=== PATIENT | female | born 1945 | race Caucasian/White ===

== ENCOUNTER → 2018-01-19 09:23 | Outpatient (CLI) | payer MEDICARE, SELFPAY ==
[2018-01-19 11:25] LABS: Vitamin D 25 Hydroxy (D3) 19.8 ng/mL (30.0-100.0)
[2018-01-24 15:30] LABS: 1 25 Dihydroxy Vitamin D 61
== END ==
PROVIDERS: PCP Internal Medicine; Visit Provider Internal Medicine Pulmonary Disease
DX: D86.9 Sarcoidosis, unspecified (principal); E55.9 Vitamin D deficiency, unspecified; Z84.1 Family history of disorders of kidney and ureter
CPT/HCPCS: 36415; 82306; 82652

== ENCOUNTER → 2018-04-09 11:20 | Outpatient (CLI) | payer MEDICARE, SELFPAY ==
--- NOTE | 2018-04-09 | DI.MG.S_ITS ---
BILATERAL DIGITAL SCREENING MAMMOGRAM 3D/2D WITH CAD: 04/09/2018 CLINICAL: Routine screening. Family history of breast cancer. Comparison is made to exams dated: 03/30/2017 mammogram, 02/19/2016 mammogram, and 02/13/2015 mammogram - [facility]. There are scattered fibroglandular elements in both breasts. Current study was also evaluated with a Computer Aided Detection (CAD) system. No significant masses, calcifications, or other findings are seen in either breast. There has been no significant interval change. IMPRESSION: NEGATIVE There is no mammographic evidence of malignancy. A 1 year screening mammogram is recommended. This exam was interpreted at Station ID: [id number]. NOTE: For mammograms, a report in lay terms will be sent to the patient. Approximately 15% of breast malignancies will not be visualized mammographically. In the management of a palpable breast mass, a negative mammogram must not discourage biopsy of a clinically suspicious lesion. Electronically Signed By: Snehal linn/boris:04/11/2018 13:59:46 letter sent: Normal Exam ACR BI-RADS Category 1: Negative [id number]
[2018-04-09 12:28] LABS: Add Manual Diff / Slide Review NO; Basophils Percent Auto 0.7 % (0-2); Eosinophils Percent Auto 3.8 % (2-4); Hematocrit 44.1 % (36-46); Hemoglobin 15.2 g/dL (12.0-16.0); Lymphocytes Percent Auto 13.2 % (25-40); Mean Corpuscular HGB Conc 34.6 % (30-36); Mean Corpuscular Hemoglobin 29.2 PG (26-34); Mean Corpuscular Volume 84.5 fL (80-100); Monocytes Percent Auto 10.1 % (3-14); Neutrophils Absolute Auto 5100 /uL (3000-5900); Neutrophils Percent Auto 72.2 % (50-75); Platelet Count 385 X10^3/uL (150-400); Red Blood Cell Count 5.21 X10^6/uL (4.0-5.2); Red Cell Distribution Width 14.2 % (11.6-14.8); White Blood Cell Count 7.1 X10^3/uL (4.5-11.0)
[2018-04-09 12:38] LABS: Alanine Aminotransferase 32 IU/L (9-52); Albumin 4.3 g/dL (3.5-5.0); Albumin Globulin Ratio 1.3 (1.0-2.8); Alkaline Phosphatase 64 U/L (38-126); Aspartate Aminotransferase 25 IU/L (14-36); Bilirubin Total 0.6 mg/dL (0.2-1.3); Blood Urea Nitrogen 24 mg/dL (7-17); Calcium 9.3 mg/dL (8.4-10.2); Carbon Dioxide 31 mmol/L (22-32); Chloride 103 mmol/L (98-107); Estimated Glomerular Filt Rate > 60.0 mL/min (>60); Globulin 3.3 g/dL (1.7-4.1); Glucose 95 mg/dL (80-110); HEMOLYSIS < 15 (0-50); Sodium 143 mmol/L (137-145); Total Protein 7.6 g/dL (6.3-8.2)
== END ==
PROVIDERS: PCP Internal Medicine; Visit Provider Internal Medicine
DX: Z12.31 Encounter for screening mammogram for malignant neoplasm of breast (principal); I10 Essential (primary) hypertension
CPT/HCPCS: 36415; 77063; 77067; 80053; 85025

== ENCOUNTER → 2018-04-22 15:08 | Outpatient (CLI) | payer MEDICARE, SELFPAY ==
[2018-04-22 16:21] LABS: Cholesterol 209 mg/dL (140-199); HDL Cholesterol 55 mg/dL (40-60); LDL Cholesterol Calculated 131 mg/dL (<100); Triglycerides 114 mg/dL (35-150)
== END ==
PROVIDERS: PCP Internal Medicine; Visit Provider Internal Medicine
DX: M85.852 Other specified disorders of bone density and structure, left thigh (principal); Z78.0 Asymptomatic menopausal state; E78.2 Mixed hyperlipidemia; Z82.62 Family history of osteoporosis
CPT/HCPCS: 77080; 80061

== ENCOUNTER 2018-05-25 08:52 | Day surgery (SDC) | payer MEDICARE, SELFPAY ==
--- NOTE | 2018-05-25 | PATH_ITS ---
[facility] Accession Number: [id number] . 01 Material submitted: . PART A: ASCENDING COLON POLYP PART B: DESCENDING COLON POLYP PART C: SIGMOID POLYP . 02 Diagnosis: A. Biopsy, Ascending Colon Polyp: Tubular adenoma. . B. Biopsy, Descending Colon Polyp: Fragment of colon mucosa with focal superficial acute inflammation, nonspecific. Negative for evidence of neoplasm and/or hyperplasia on multiple sections. . C. Biopsy, Sigmoid Colon Polyp: Fragment of normal appearing colon mucosa. Negative for evidence of hyperplasia and/or neoplasm on multiple histologic sections. [facility]/05/26/2018 . 02 Electronically signed: . Jose Elias Posey MD, Pathologist NPI- [id number] . 01 Gross description: . Received three formalin-filled containers, each labeled with the patient's name: . A. In a container labeled ascending colon polyp, the specimen consists of a 0.2 cm portion of tissue, entirely submitted in cassette A. B. In a container labeled descending col. polyp, the specimen consists of a 0.3 cm portion of tissue, entirely submitted in cassette B. C. In a container labeled sigmoid polyp, the specimen consists of a 0.5 cm portion of tissue, entirely submitted in cassette C. ([id number]) /FRR . 02 Pathologist provided ICD-10: D12.2 . 02 CPT . 592939, 098747, 865724 Performed at: 01 [facility] [address] [id number] MD Morro Gunn MD Phone: [phone] Performed at: 02 [facility] [id number] [place] [id number] MD Giulia Morris MD Phone: [phone]
[2018-05-25 09:19] VITALS: BP 137/72; PULSE 94; RESP 16; TEMP 36.2; O2SAT 97
--- NOTE | 2018-05-25 10:03 | PM.HP.1 ---
History of Present Illness Date Patient Seen: 05/25/18 Time Patient Seen: 10:04 Chief complaint: [id number] Narrative: Screening Patient History Medical History Hypercholesterolemia (Acute) Hypertension (Acute) Family & Social History Social History: household members friend(s) Meds Home Medications Medication Instructions Recorded Confirmed Type ezetimibe [Zetia] 10 mg PO DAILY 05/25/18 05/25/18 History losartan 50 mg PO DAILY 05/25/18 05/25/18 History Allergies Allergy/AdvReac Type Severity Reaction Status Date / Time codeine AdvReac Verified 05/25/18 09:12 meperidine [From Demerol] AdvReac Verified 05/25/18 09:12 Exam Vital Signs (past 8 hours): - 05/25/18 09:19 Temperature 97.1 F L Pulse Rate 94 H Respiratory Rate 16 Blood Pressure 137/72 Pulse Oximetry 97 Oxygen Delivery Method Room Air Narrative Exam Narrative: Oropharynx free of lesions Chest clear to auscultation and percussion Cardiac exam reveals no S3 or murmur Assessment & Plan Plan: Assessment/Plan Narrative: Need for screening colonoscopy with last colonoscopy somewhere between 8-12 years ago. Risks, benefits, alternatives have been explained.
--- NOTE | 2018-05-25 10:06 | P.HP_ITS ---
History of Present Illness Date Patient Seen: 05/25/18 Time Patient Seen: 10:04 Chief complaint: [id number] Narrative: Screening Patient History Medical History Hypercholesterolemia (Acute) Hypertension (Acute) Family & Social History Social History: household members friend(s) Meds Home Medications Medication Instructions Recorded Confirmed Type ezetimibe [Zetia] 10 mg PO DAILY 05/25/18 05/25/18 History losartan 50 mg PO DAILY 05/25/18 05/25/18 History Allergies Allergy/AdvReac Type Severity Reaction Status Date / Time codeine AdvReac Verified 05/25/18 09:12 meperidine [From Demerol] AdvReac Verified 05/25/18 09:12 Exam Vital Signs (past 8 hours): - 05/25/18 09:19 Temperature 97.1 F L Pulse Rate 94 H Respiratory Rate 16 Blood Pressure 137/72 Pulse Oximetry 97 Oxygen Delivery Method Room Air Narrative Exam Narrative: Oropharynx free of lesions Chest clear to auscultation and percussion Cardiac exam reveals no S3 or murmur Assessment & Plan Plan: Assessment/Plan Narrative: Need for screening colonoscopy with last colonoscopy somewhere between 8-12 years ago. Risks, benefits, alternatives have been explained.
--- NOTE | 2018-05-25 10:06 | PM.OP.ENDO ---
Operative Date/Time/Diagnoses Date of procedure: 05/25/18 Time of procedure: 10:06 Pre-op diagnosis: see indication and findings Procedure & Clinicians Study performed: Colonoscopy Same procedure as scheduled: Yes Indications: Screening Surgeon: Danni Campbell Procedure Notes Procedure in detail: After informed consent was obtained the patient was placed in left lateral decubitus position. The video colonoscope was introduced the rectum slowly advanced to the cecum. Preparation was good. On slow withdrawal mucosa was carefully examined. The scope was removed. The patient tolerated the procedure well. Blood loss none Complications none Sedation Total sedation time 22 min Versed 4 mg fentanyl 100 mcg IV titration Findings 1. Extensive sigmoid diverticulosis 2. 3 mm polyp in the ascending colon Jumbo biopsy removed completely 3. 3 mm polyp in the descending colon Jumbo biopsy removed completely 4. 2 mm polyp in the sigmoid colon Jumbo biopsy removed completely 5. Otherwise normal colonoscopy to cecum Will be in touch with the patient regarding biopsies. If all 3 are adenomatous would repeat in 3 years but more likely at least 1 will be non adenomatous so she will require follow-up in 5 years.
[2018-05-25] MEDS: MIDAZOLAM 5 MG/5 ML VIAL IV (10:09)
[2018-05-25] MEDS: SODIUM CHLORIDE 0.9% 1,000 ML 42 ML IV (10:10)
[2018-05-25] MEDS: fentaNYL 250 MCG/5 ML INJ IV (10:26)
[2018-05-25 10:30] VITALS: BP 110/59; PULSE 92; RESP 14; TEMP 36.8; O2SAT 92
[2018-05-25 10:35] VITALS: BP 108/39; PULSE 78; RESP 19; TEMP 36.8; O2SAT 95
[2018-05-25 10:38] VITALS: BP 120/60
[2018-05-25 10:39] VITALS: BP 119/64; PULSE 70; RESP 14; TEMP 36.8; O2SAT 93
[2018-05-25 11:00] VITALS: BP 122/66; PULSE 72; RESP 16; TEMP 36.8; O2SAT 95
== END 2018-05-25 11:20 | disposition home or self-care (01) ==
PROVIDERS: PCP Internal Medicine; Visit Provider Internal Medicine Gastroenterology
PROC: 0DJD8ZZ Inspection of Lower Intestinal Tract, Via Natural or Artificial Opening Endoscopic (ICD-10-PCS; CPT 45378; principal; 2018-05-25 10:00)
DX: Z12.11 Encounter for screening for malignant neoplasm of colon (principal); K57.30 Diverticulosis of large intestine without perforation or abscess without bleeding; D12.2 Benign neoplasm of ascending colon; D12.4 Benign neoplasm of descending colon; D12.5 Benign neoplasm of sigmoid colon; E78.00 Pure hypercholesterolemia, unspecified; I10 Essential (primary) hypertension
CPT/HCPCS: 45380; 88305; J2250; J3010

== ENCOUNTER → 2018-05-30 08:51 | Outpatient (CLI) | payer MEDICARE, SELFPAY ==
[2018-05-30 09:47] LABS: Alanine Aminotransferase 26 IU/L (9-52); Aspartate Aminotransferase 33 IU/L (14-36); Cholesterol 218 mg/dL (140-199); HDL Cholesterol 43 mg/dL (40-60); LDL Cholesterol Calculated 154 mg/dL (<100); Triglycerides 104 mg/dL (35-150)
== END ==
PROVIDERS: PCP Internal Medicine; Visit Provider Internal Medicine
DX: I10 Essential (primary) hypertension (principal); E78.2 Mixed hyperlipidemia
CPT/HCPCS: 36415; 80061; 84450; 84460

== ENCOUNTER → 2018-09-28 09:12 | Outpatient (CLI) | payer MEDICARE, SELFPAY ==
[2018-09-28 13:51] LABS: Add Manual Diff / Slide Review NO; Basophils Absolute Auto 0 /uL (0-100); Basophils Percent Auto 0.7 % (0-2); Eosinophils Absolute Auto 300 /uL (0-450); Eosinophils Percent Auto 5.6 % (2-4); Hematocrit 43.8 % (36-46); Hemoglobin 15.1 g/dL (12.0-16.0); Lymphocytes Absolute Auto 1000 /uL (1100-4500); Lymphocytes Percent Auto 18.3 % (25-40); Mean Corpuscular HGB Conc 34.5 % (30-36); Mean Corpuscular Hemoglobin 29.7 PG (26-34); Mean Corpuscular Volume 86.1 fL (80-100); Monocytes Absolute Auto 600 /uL (0-900); Monocytes Percent Auto 11.4 % (3-14); Neutrophils Absolute Auto 3500 /uL (1500-7000); Platelet Count 455 X10^3/uL (150-400); Red Blood Cell Count 5.08 X10^6/uL (4.0-5.2); Red Cell Distribution Width 13.7 % (11.6-14.8); White Blood Cell Count 5.4 X10^3/uL (4.5-11.0)
[2018-09-28 17:12] LABS: Vitamin D 25 Hydroxy (D3) 24.9 ng/mL (30.0-100.0)
[2018-10-01 15:17] LABS: 1 25 Dihydroxy Vitamin D 68 pg/mL (18-72)
== END ==
PROVIDERS: Family Provider Internal Medicine; PCP Internal Medicine; Visit Provider Internal Medicine Pulmonary Disease
DX: D86.9 Sarcoidosis, unspecified (principal); E55.9 Vitamin D deficiency, unspecified; I10 Essential (primary) hypertension; E78.2 Mixed hyperlipidemia; Z84.1 Family history of disorders of kidney and ureter
CPT/HCPCS: 36415; 82306; 82652; 85025

== ENCOUNTER → 2018-10-14 10:08 | Outpatient (CLI) | payer MEDICARE, SELFPAY ==
[2018-10-14 11:01] LABS: Cholesterol 186 mg/dL (140-199); HDL Cholesterol 45 mg/dL (40-60); LDL Cholesterol Calculated 120 mg/dL (<100); Triglycerides 106 mg/dL (35-150)
== END ==
PROVIDERS: PCP Internal Medicine; Visit Provider Internal Medicine
DX: I10 Essential (primary) hypertension (principal); E78.2 Mixed hyperlipidemia
CPT/HCPCS: 36415; 80061

== ENCOUNTER → 2019-04-10 15:31 | Outpatient (CLI) | payer MEDICARE, SELFPAY ==
--- NOTE | 2019-04-10 | DI.MG.S_ITS ---
BILATERAL DIGITAL SCREENING MAMMOGRAM 3D/2D WITH CAD: 04/10/2019 CLINICAL: Routine screening. Family history of breast cancer. Comparison is made to exams dated: 04/09/2018 mammogram, 03/30/2017 mammogram, and 02/19/2016 mammogram - [facility]. The tissue of both breasts is predominantly fatty. Current study was also evaluated with a Computer Aided Detection (CAD) system. No significant masses, calcifications, or other findings are seen in either breast. There has been no significant interval change. IMPRESSION: NEGATIVE There is no mammographic evidence of malignancy. A 1 year screening mammogram is recommended. This exam was interpreted at Station ID: [id number]. NOTE: For mammograms, a report in lay terms will be sent to the patient. Approximately 15% of breast malignancies will not be visualized mammographically. In the management of a palpable breast mass, a negative mammogram must not discourage biopsy of a clinically suspicious lesion. Electronically Signed By: Chasidy vazquez/boris:04/10/2019 19:19:37 letter sent: Normal Exam ACR BI-RADS Category 1: Negative [id number]
[2019-04-10 17:30] LABS: Alanine Aminotransferase 30 IU/L (9-52); Albumin 4.1 g/dL (3.5-5.0); Albumin Globulin Ratio 1.4 (1.0-2.8); Alkaline Phosphatase 66 U/L (38-126); Aspartate Aminotransferase 27 IU/L (14-36); BUN Creatinine Ratio 27.5 (6-22); Bilirubin Total 0.5 mg/dL (0.2-1.3); Blood Urea Nitrogen 22 mg/dL (7-17); Calcium 9.8 mg/dL (8.4-10.2); Carbon Dioxide 28 mmol/L (22-32); Chloride 101 mmol/L (98-107); Estimated Glomerular Filt Rate > 60.0 mL/min (>60); Globulin 2.9 g/dL (1.7-4.1); Glucose 98 mg/dL (80-110); HEMOLYSIS < 15 (0-50); Potassium 4.2 mmol/L (3.4-5.1); Sodium 138 mmol/L (137-145)
== END ==
PROVIDERS: PCP Internal Medicine; Visit Provider Internal Medicine
DX: Z12.31 Encounter for screening mammogram for malignant neoplasm of breast (principal); Z80.3 Family history of malignant neoplasm of breast; I10 Essential (primary) hypertension; K76.0 Fatty (change of) liver, not elsewhere classified
CPT/HCPCS: 36415; 77063; 77067; 80053

== ENCOUNTER → 2019-04-14 13:14 | Outpatient (CLI) | payer MEDICARE, SELFPAY ==
[2019-04-14 13:39] LABS: Add Manual Diff / Slide Review NO; Basophils Absolute Auto 100 /uL (0-100); Basophils Percent Auto 1.4 % (0-2); Eosinophils Absolute Auto 300 /uL (0-450); Eosinophils Percent Auto 4.7 % (2-4); Hematocrit 42.6 % (36-46); Hemoglobin 14.7 g/dL (12.0-16.0); Lymphocytes Absolute Auto 1100 /uL (1100-4500); Lymphocytes Percent Auto 18.3 % (25-40); Mean Corpuscular HGB Conc 34.6 % (30-36); Mean Corpuscular Hemoglobin 29.6 PG (26-34); Mean Corpuscular Volume 85.4 fL (80-100); Monocytes Absolute Auto 700 /uL (0-900); Monocytes Percent Auto 11.7 % (3-14); Neutrophils Absolute Auto 3700 /uL (1500-7000); Neutrophils Percent Auto 63.9 % (50-75); Platelet Count 354 X10^3/uL (150-400); Red Blood Cell Count 4.99 X10^6/uL (4.0-5.2); Red Cell Distribution Width 14.3 % (11.6-14.8); White Blood Cell Count 5.9 X10^3/uL (4.5-11.0)
== END ==
PROVIDERS: PCP Internal Medicine; Visit Provider Internal Medicine
DX: D72.810 Lymphocytopenia (principal)
CPT/HCPCS: 36415; 85025

== ENCOUNTER → 2019-11-03 11:11 | Outpatient (CLI) | payer MEDICARE, SELFPAY ==
[2019-11-03 11:31] LABS: RBC Urine None Seen (0-5/HPF)
[2019-11-03 11:34] LABS: Add Manual Diff / Slide Review NO; Basophils Absolute Auto 100 /uL (0-100); Basophils Percent Auto 1.2 % (0-2); Eosinophils Absolute Auto 300 /uL (0-450); Eosinophils Percent Auto 4.2 % (2-4); Hematocrit 46.5 % (36-46); Lymphocytes Absolute Auto 1000 /uL (1100-4500); Lymphocytes Percent Auto 13.9 % (25-40); Mean Corpuscular HGB Conc 34.3 % (30-36); Mean Corpuscular Hemoglobin 29.8 PG (26-34); Mean Corpuscular Volume 86.7 fL (80-100); Monocytes Absolute Auto 700 /uL (0-900); Monocytes Percent Auto 9.9 % (3-14); Neutrophils Absolute Auto 5300 /uL (1500-7000); Neutrophils Percent Auto 70.8 % (50-75); Platelet Count 389 X10^3/uL (150-400); Red Blood Cell Count 5.36 X10^6/uL (4.0-5.2); Red Cell Distribution Width 14.1 % (11.6-14.8); White Blood Cell Count 7.5 X10^3/uL (4.5-11.0)
[2019-11-03 11:40] LABS: Appearance Urine UA CLEAR; Bilirubin Urine UA NEGATIVE (NEGATIVE); Color Urine UA YELLOW; Glucose Urine UA NEGATIVE (Negative); Ketones Urine UA NEGATIVE (NEGATIVE); Leukocyte Esterase Urine UA TRACE (NEGATIVE); Nitrite Urine UA NEGATIVE (Negative); Occult Blood Urine UA TRACE-LYSED (Negative); Protein Urine UA NEGATIVE (Negative); Specific Gravity Urine UA <=1.005 (1.000-1.035); Urobilinogen Urine UA 0.2 E.U./dL (0.2)
[2019-11-03 11:48] LABS: Bacteria Urine Few (2-10); Squamous Epithelial Cell Urine 1-5 /HPF (0-5/HPF); Urine Comments CULTURE ORDERED; WBC Urine 1-5/HPF (0-5/HPF)
[2019-11-03 17:15] LABS: Alanine Aminotransferase 22 IU/L (<35); Albumin 4.3 g/dL (3.5-5.0); Albumin Globulin Ratio 1.3 (1.0-2.8); Alkaline Phosphatase 74 U/L (38-126); Aspartate Aminotransferase 28 IU/L (14-36); BUN Creatinine Ratio 21.6 (6-22); Bilirubin Total 0.5 mg/dL (0.2-1.3); Blood Urea Nitrogen 16 mg/dL (7-17); Calcium 9.7 mg/dL (8.4-10.2); Carbon Dioxide 27 mmol/L (22-32); Chloride 105 mmol/L (98-107); Estimated Glomerular Filt Rate > 60.0 mL/min (>60); Globulin 3.3 g/dL (1.7-4.1); Glucose 86 mg/dL (80-110); HEMOLYSIS < 15 (0-50); Sodium 140 mmol/L (137-145); Total Protein 7.6 g/dL (6.3-8.2)
== END ==
PROVIDERS: Physician Assistant; PCP Internal Medicine; Referring Provider Internal Medicine; Visit Provider Internal Medicine
DX: R10.30 Lower abdominal pain, unspecified (principal)
CPT/HCPCS: 36415; 80053; 81001; 85025; 87077; 87086; 87147; 87186

== ENCOUNTER → 2019-11-08 11:36 | Outpatient (CLI) | payer MEDICARE, SELFPAY ==
--- NOTE | 2019-11-08 | DI.CT.S_ITS ---
PROCEDURE: CT ABDOMEN PELVIS W CON INDICATIONS: Pelvic and perineal pain, history of pulmonary sarcoidosis. TECHNIQUE: After the administration of oral and intravenous contrast, 5 mm thick sections acquired from the diaphragms to the symphysis. 5 mm thick coronal and sagittal reformats were performed. For radiation dose reduction, the following was used: automated exposure control, adjustment of mA and/or kV according to patient size. COMPARISON: Outside Facility, , CT THORAX W/O CONTRAST, 01/17/2019, 14:08. [facility], CT, ABDOMEN/PELVIS WITH CONTRAST, 12/07/2016, 17:22. FINDINGS: Image quality: Excellent. ABDOMEN: Lung bases: Lung bases are not significantly changed with reference to a [facility] chest CT 01/17/19 which has documented multifocal indistinctly marginated lung nodules and no calcified mediastinal and hilar mild adenopathy. Heart size is normal. Solid organs: Liver is normal in size and enhancement. Gallbladder appears normal. Biliary system is non-dilated. Pancreas enhances normally. Spleen is normal in size and enhancement. No adrenal nodules. Kidneys are normal in size and enhancement, without hydronephrosis. Peritoneum and bowel: Stomach, small bowel, and colon loops are normal in caliber and wall thickness. No free fluid or air. Nodes and vessels: No retroperitoneal or mesenteric adenopathy. Aorta and inferior vena cava are normal in caliber. Miscellaneous: No ventral hernias. PELVIS: Genitourinary: Bladder wall thickness is normal. Miscellaneous: No inguinal hernias or adenopathy. Bones: No suspicious bony lesions. No vertebral body compression fractures. IMPRESSION: Prior history of pulmonary sarcoidosis, no change in the small portion of the lung bases included on this study with reference to the comparison CT from the [facility] through the chest dated 01/17/19. Within the abdomen and pelvis a source of pain is not identified. Dictated by: Chepe John M.D. on 11/08/2019 at 14:16 Approved by: Chepe John M.D. on 11/08/2019 at 14:20
== END ==
PROVIDERS: PCP Internal Medicine; Referring Provider Physician Assistant; Visit Provider Physician Assistant
DX: R10.2 Pelvic and perineal pain (principal); R10.30 Lower abdominal pain, unspecified; D86.0 Sarcoidosis of lung
CPT/HCPCS: 74177; Q9967

== ENCOUNTER → 2019-12-26 13:35 | Oncology outpatient (ONC) | payer MEDICARE, SELFPAY ==
[2019-12-26 14:37] VITALS: BP 155/93; PULSE 78; RESP 18; TEMP 36.8; O2SAT 96
--- NOTE | 2019-12-26 15:20 | P.CONONC_ITS ---
History of Present Illness - Data of Consult Primary Care Provider: Marin Aguilera MD - Consult Narrative Narrative: Anali Kumar is a 74 year old female CC: Kalpesh Lopez MD Ms. Kumar is a very pleasant 74-year-old lady who is referred for further evaluation of lymphopenia. She originally was diagnosed with sarcoidosis in 2009. She states that she never had a biopsy and has never required treatment. She presented with fatigue and cough at that time. She had radiographic findings and has been followed at the [facility]. Her most recent appointment was in June of 2019. She has not been back due to the COVID outbreak. She does note that she seems to be having increasing fatigue and is back to drinking coffee with caffeine on a regular basis to help her get through the day. She has episodic cough and fluctuating shortness of breath but the symptoms come and go without any stair step worsening. She has been seen by her induction heating equipment setter has a treadmill scheduled for next week. She notes that when she does get short of breath her inhaler is helpful. She has noticed increased seasonal allergies. Her weight is been steady. She does not have any other issues with pain, bleeding, localized weakness, fever, chills, nausea, vomiting, diarrhea, anorexia, or unintended weight loss. She does have a rash that she has had for several years and has been seen by Dermatology. She does think it has been biopsied. She has not noticed any lumps or bumps. All other systems are negative. She does not have a history of frequent infections. She states that it has been years since she has had a significant upper respiratory illness. She bites her cheek and it heals up in a normal fashion. She does not get infection of superficial cuts. However, these really occur. She does not have any other infectious type symptoms except for recent urinary tract infection associated with flank pain that resolved with antibiotics.\ Past medical history 1. Is a family history of breast cancer and melanoma in her mother. Her sister has walled and strokes. There is no other family history of blood disorder or malignancy 2. 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 She is also had breast reduction surgery, kidney stone removal and stent placement\. 3. She has worked in the medical field in office management, as a scrub nurse, and in bookkeeping. She is not a smoker or drinker. She is alone in the office today. She lives with her significant other who has multiple myeloma and she is very involved in his caregiving. 4. High blood pressure 5. Hyperlipidemia 6. History of vitamin-D deficiency 7. History of a thyroid nodule 8. She denies diabetes, rheumatic fever, tuberculosis, heart attacks, strokes, stomach ulcers, pneumonia or any kind of cancer Home Medications and Allergies Home Medications Medication Instructions Recorded Confirmed Type losartan 50 mg PO DAILY 05/25/18 05/25/18 History atorvastatin See Rx Instructions .ROUTE .COMPLEX 12/26/19 12/26/19 History bepotastine besilate [Bepreve] % OPHTHALMIC (EYE) 12/26/19 History cholecalciferol (vitamin D3) 10 mcg PO DAILY 12/26/19 12/26/19 History [Vitamin D3] estradiol [Vagifem] 10 mcg VAGINAL 2XW 12/26/19 12/26/19 History estradiol [Vivelle-Dot] 1 patch TRANSDERMAL 2XW 12/26/19 12/26/19 History zolpidem 5 mg PO BEDTIME PRN 12/26/19 12/26/19 History Allergies Allergy/AdvReac Type Severity Reaction Status Date / Time codeine AdvReac Verified 05/25/18 09:12 meperidine [From Demerol] AdvReac Verified 05/25/18 09:12 General Anesthesia AdvReac Uncoded 12/26/19 14:41 Medical History - Medical, Surgical, Family History Medical History: Medical History (Last Updated 05/25/18 @ 10:05 by Danni Campbell MD) Hypercholesterolemia Hypertension Exam Vital signs: Vital Signs Temp Pulse Resp BP Pulse Ox 12/26/19 14:37 98.3 F 78 18 155/93 H 96 Intake and Output 12/25/19 12/26/19 12/26/19 23:59 07:59 15:59 Other: Weight 66.5 kg Patient Weight 12/26/19 23:59 Weight 66.5 kg Narrative: She was awake, alert and oriented x3. She was in no acute distress. There was no palpable lymphadenopathy in the cervical, supraclavicular, axillary, inguinal or femoral regions. Lungs were clear without wheezes or rales. Heart showed a regular rate and rhythm without murmur, gallop or rub. The abdomen was soft and nontender without any palpable about splenomegaly or masses. The spleen was not enlarged to percussion or palpation. Assessment and Plan (1) Leucopenia Status: Acute Ms. rodriguez has a lymphopenia. She does not have any evidence of a malignancy such as lymphoma on her history, physical exam, of routine lab work, or CT scan of the abdomen and pelvis. She is up-to-date with her screenings with a colonoscopy and an mammogram in May of 2018. There are no findings that would suggest a malignancy. She is not on any immunosuppressive therapy and does not have any evidence of a chronic infection that might contribute to lymphopenia. She does not have kidney failure. She is not a drinker. She clinically does not have Jeaneth's syndrome. She is not malnourished. Her lymphopenia is relatively mild, and it is not associated with an active infectious syndrome, particularly recurrent respiratory infections. She is does not think she has had in the past. The oldest lymphopenia that I can find in the chart is from November of 2016 when she had them for absolute lymphocyte count of 900. She will check her old records to see if it was present prior to that. She does have a history of sarcoidosis. This can be associated with lymphopenia. She has some increasing fatigue and plans to follow-up with her feed inspection supervisor in [place] as soon as it is feasible to do so. Will plan to check quantitative immunoglobulins on her today. This would be a marker of B-cell function. If these are normal, in the absence of an infectious syndrome, and in the presence of a reasonable explanation for her lymphopenia (sarcoidosis), I do not think any further workup or treatment would be indicated at this time. I did suggest that she should have a blood count done every 6-12 months. Her for old records show that this is a recent event, checking her every 6 months would be reasonable. On the other hand, if she has had a lymphopenia going back for many years, an annual CBC would be reasonable. She will call in for the results of her quantitative immunoglobulin levels and the results of previous lymphocyte measurements in the near future. Assuming there is no surprise in those results, I do not think we necessarily need to see her back in the office here although would be happy to do so at any time. Impression 1. Lymphopenia, dating to at least November of 2016 2. No clinical Infectious syndrome 3. History of sarcoidosis, a condition that can be associated with lymphopenia Recommendations 1. She will check her old records to further clarify the duration of the lymphopenia 2. Quantitative immunoglobulins will be obtained today 3. She will call back with the results of her record check in to follow-up on the results of today's immunoglobulins at about 2 weeks 4. She will follow-up with her feed inspection supervisor at the [facility] for sarcoidosis 5. If she is hypogammaglobulinemic, IVIG could be considered if she were developed a severe infection 6. Would suggest a follow-up CBC at 6-12 month intervals which she would like to have under the direction of her primary physician. I personally spent 49 minutes in today's uldb-yr-ibup visit with greater than 50% of the time spent in program counselor regarding the issues outlined above.
[2019-12-27 05:12] LABS: Immunoglobulin A 232 mg/dL (64-422); Immunoglobulin G, Quantitative 1156 mg/dL (586-1602); Immunoglobulin M, Quantitative 88 mg/dL (26-217)
== END ==
PROVIDERS: PCP Internal Medicine; Referring Provider Internal Medicine; Visit Provider Internal Medicine
DX: D72.810 Lymphocytopenia (principal); D86.9 Sarcoidosis, unspecified; R53.83 Other fatigue; I10 Essential (primary) hypertension; E78.5 Hyperlipidemia, unspecified
CPT/HCPCS: 36415; 82784; 99204; 99214

== ENCOUNTER → 2020-09-16 13:44 | Outpatient (CLI) | payer MEDICARE, SELFPAY ==
--- NOTE | 2020-09-16 | DI.US.S_ITS ---
LIMITED ULTRASOUND OF RIGHT BREAST: 09/16/2020 CLINICAL: Right nipple skin lesion and pain. Comparison is made to exams dated: 09/16/2020 mammogram, 04/10/2019 mammogram, 04/09/2018 mammogram, 03/30/2017 mammogram, 02/19/2016 mammogram, and 02/13/2015 mammogram - [facility]. Color flow and real-time ultrasound of the right breast 5 o'clock region were performed on the areas of interest. There is localized skin thickening in the right breast at 5 o'clock that correlates with palpable abnormality. There is corresponding increased vascularity on color Doppler interrogation. No discrete mass or fluid collection identified. IMPRESSION: BENIGN Localized skin thickening with increased vascularity demonstrated in the area of palpable abnormality. No discrete mass or fluid collection. Clinical followup is recommended to demonstrate resolution or stability. Return to annual mammogram screening schedule is recommended. This exam was interpreted at Station ID: [id number]. Electronically Signed By: Morro crocker/:09/16/2020 16:31:36 letter sent: Clinical Evaluation Ultrasound BI-RADS: 2 Benign
--- NOTE | 2020-09-16 | DI.MG.S_ITS ---
BILATERAL DIGITAL DIAGNOSTIC MAMMOGRAM 3D/2D: 09/16/2020 CLINICAL: Right breast pain. Comparison is made to exams dated: 04/10/2019 mammogram, 04/09/2018 mammogram, and 03/30/2017 mammogram - [facility]. There are scattered fibroglandular elements in both breasts. No significant masses, calcifications, or other findings are seen in either breast. IMPRESSION: INCOMPLETE: NEEDS ADDITIONAL IMAGING EVALUATION There is no abnormality seen in the right breast to correspond with the skin lesion in the sub-areolar depth, however, ultrasound is recommended. Ultrasound will be performed immediately following the current exam. This exam was interpreted at Station ID: [id number]. NOTE: For mammograms, a report in lay terms will be sent to the patient. Approximately 15% of breast malignancies will not be visualized mammographically. In the management of a palpable breast mass, a negative mammogram must not discourage biopsy of a clinically suspicious lesion. Electronically Signed By: Morro Barrera M.D. ddp/:09/16/2020 14:58:38 ACR BI-RADS Category 0: Incomplete [id number]
[2020-09-16 16:41] LABS: Vitamin D 25 Hydroxy (D3) 26.1 ng/mL (30.0-100.0)
[2020-09-24 02:00] LABS: 1,25-Dihydroxy, Vitamin D-2 <10 pg/mL (.)
== END ==
PROVIDERS: PCP Internal Medicine; Referring Provider Internal Medicine; Visit Provider Internal Medicine
DX: R92.8 Other abnormal and inconclusive findings on diagnostic imaging of breast (principal); N64.4 Mastodynia; N64.89 Other specified disorders of breast; M85.852 Other specified disorders of bone density and structure, left thigh; Z78.0 Asymptomatic menopausal state; D86.9 Sarcoidosis, unspecified; Z82.62 Family history of osteoporosis; E55.9 Vitamin D deficiency, unspecified; N20.0 Calculus of kidney; M85.80 Other specified disorders of bone density and structure, unspecified site
CPT/HCPCS: 36415; 76642; 77066; 77080; 82306; 82652; G0279

== ENCOUNTER → 2020-09-23 13:58 | Outpatient (CLI) | payer MEDICARE, SELFPAY ==
[2020-09-23 14:44] LABS: Appearance Urine UA CLEAR; Bilirubin Urine UA NEGATIVE (NEGATIVE); Color Urine UA YELLOW; Glucose Urine UA NEGATIVE (Negative); Ketones Urine UA NEGATIVE (NEGATIVE); Leukocyte Esterase Urine UA 1+ (NEGATIVE); Nitrite Urine UA NEGATIVE (Negative); Occult Blood Urine UA NEGATIVE (Negative); Protein Urine UA NEGATIVE (Negative); Specific Gravity Urine UA <=1.005 (1.000-1.035); Urobilinogen Urine UA 0.2 E.U./dL (0.2)
[2020-09-23 14:51] LABS: pH Urine UA 5.5 (4.5-8.0)
[2020-09-23 15:07] LABS: Bacteria Urine Few (2-10); RBC Urine 0-1/HPF (0-5/HPF); Squamous Epithelial Cell Urine 1-5 /HPF (0-5/HPF); Transitional Epi Cells Urine 1-5/HPF (0-5/HPF); WBC Urine 10-30/HPF (0-5/HPF)
== END ==
PROVIDERS: PCP Internal Medicine; Referring Provider Internal Medicine; Visit Provider Internal Medicine
DX: R39.198 Other difficulties with micturition (principal)
CPT/HCPCS: 81001; 87077; 87086; 87186

== ENCOUNTER → 2020-12-02 08:50 | Outpatient (CLI) | payer MEDICARE, SELFPAY ==
[2020-12-02 11:42] LABS: COVID19 -Nasal RAPID Negative (Negative)
== END ==
PROVIDERS: PCP Internal Medicine; Visit Provider Physician Assistant
DX: Z01.812 Encounter for preprocedural laboratory examination (principal); Z20.822 Contact with and (suspected) exposure to COVID-19
CPT/HCPCS: 87635; C9803

== ENCOUNTER → 2020-12-31 11:16 | Outpatient (CLI) | payer MEDICARE, SELFPAY ==
[2020-12-31 12:27] LABS: Vitamin D 25 Hydroxy (D3) 19.5 ng/mL (30.0-100.0)
[2021-01-07 01:37] LABS: 1,25-Dihydroxy, Vitamin D-2 <10 pg/mL (.)
== END ==
PROVIDERS: PCP Internal Medicine; Referring Provider Internal Medicine Pulmonary Disease; Visit Provider Internal Medicine Pulmonary Disease
DX: D86.9 Sarcoidosis, unspecified (principal); E55.9 Vitamin D deficiency, unspecified; N20.0 Calculus of kidney; M85.80 Other specified disorders of bone density and structure, unspecified site
CPT/HCPCS: 36415; 82306; 82652

== ENCOUNTER → 2021-04-15 09:26 | Outpatient (CLI) | payer MEDICARE, SELFPAY ==
[2021-04-15 12:16] LABS: Add Manual Diff / Slide Review NO; Basophils Absolute Auto 0 /uL (0-100); Basophils Percent Auto 0.8 % (0-2); Eosinophils Absolute Auto 300 /uL (0-450); Eosinophils Percent Auto 5.7 % (2-4); Hematocrit 43.1 % (36-46); Hemoglobin 14.9 g/dL (12.0-16.0); Lymphocytes Absolute Auto 900 /uL (1100-4500); Lymphocytes Percent Auto 14.8 % (25-40); Mean Corpuscular HGB Conc 34.6 % (30-36); Mean Corpuscular Hemoglobin 29.3 PG (26-34); Mean Corpuscular Volume 84.8 fL (80-100); Monocytes Absolute Auto 600 /uL (0-900); Monocytes Percent Auto 10.1 % (3-14); Neutrophils Absolute Auto 4000 /uL (1500-7000); Neutrophils Percent Auto 68.6 % (50-75); Platelet Count 422 X10^3/uL (150-400); Red Blood Cell Count 5.08 X10^6/uL (4.0-5.2); Red Cell Distribution Width 13.8 % (11.6-14.8); White Blood Cell Count 5.9 X10^3/uL (4.5-11.0)
[2021-04-15 13:00] LABS: Alanine Aminotransferase 20 IU/L (<35); Albumin Globulin Ratio 1.3 (1.0-2.8); Alkaline Phosphatase 68 U/L (38-126); Aspartate Aminotransferase 25 IU/L (14-36); BUN Creatinine Ratio 24.4 (6-22); Bilirubin Total 0.6 mg/dL (0.2-1.3); Blood Urea Nitrogen 21 mg/dL (7-17); Calcium 9.2 mg/dL (8.4-10.2); Carbon Dioxide 26 mmol/L (22-32); Chloride 103 mmol/L (98-107); Cholesterol 266 mg/dL (140-199); Estimated Glomerular Filt Rate > 60.0 mL/min (>60); Globulin 3.1 g/dL (1.7-4.1); Glucose 93 mg/dL (80-110); HDL Cholesterol 52 mg/dL (40-60); HEMOLYSIS < 15 (0-50); LDL Cholesterol Calculated 190 mg/dL (<100); Potassium 4.4 mmol/L (3.4-5.1); Sodium 136 mmol/L (137-145); Total Protein 7.1 g/dL (6.3-8.2); Triglycerides 120 mg/dL (35-150)
== END ==
PROVIDERS: PCP Internal Medicine; Referring Provider Internal Medicine; Visit Provider Internal Medicine
DX: E78.2 Mixed hyperlipidemia (principal)
CPT/HCPCS: 36415; 80053; 80061; 85025

== ENCOUNTER → 2021-06-17 12:43 | Outpatient (CLI) | payer MEDICARE, SELFPAY ==
[2021-06-17 17:01] LABS: Vitamin D 25 Hydroxy (D3) 25.6 ng/mL (30.0-100.0)
[2021-06-21 00:33] LABS: 1,25-Dihydroxy, Vitamin D-2 <10 pg/mL (.)
== END ==
PROVIDERS: PCP Internal Medicine; Referring Provider Internal Medicine Pulmonary Disease; Visit Provider Internal Medicine Pulmonary Disease
DX: E55.9 Vitamin D deficiency, unspecified (principal); D86.9 Sarcoidosis, unspecified; N20.0 Calculus of kidney; M85.80 Other specified disorders of bone density and structure, unspecified site
CPT/HCPCS: 36415; 82306; 82652

== ENCOUNTER → 2021-09-12 13:30 | Outpatient (CLI) | payer MEDICARE, SELFPAY ==
[2021-09-12 16:37] LABS: Calcium 24 Hour Urine 212 mg/day (100-300); Calcium Urine Random 17.7 mg/dL; Collection Time Urine 24 Hours; Total Volume Urine 1200 mL
== END ==
PROVIDERS: PCP Internal Medicine; Referring Provider Internal Medicine Endocrinology, Diabetes & Metabolism; Visit Provider Internal Medicine Endocrinology, Diabetes & Metabolism
DX: E67.3 Hypervitaminosis D (principal); D86.9 Sarcoidosis, unspecified
CPT/HCPCS: 82340

== ENCOUNTER → 2021-11-06 09:57 | Outpatient (CLI) | payer MEDICARE, SELFPAY ==
[2021-11-06 11:26] LABS: Alanine Aminotransferase 16 IU/L (<35); Albumin Globulin Ratio 1.1 (1.0-2.8); Alkaline Phosphatase 75 U/L (38-126); Aspartate Aminotransferase 26 IU/L (14-36); BUN Creatinine Ratio 23.2 (6-22); Bilirubin Total 0.5 mg/dL (0.2-1.3); Blood Urea Nitrogen 19 mg/dL (7-17); Calcium 8.9 mg/dL (8.4-10.2); Carbon Dioxide 30 mmol/L (22-32); Chloride 102 mmol/L (98-107); Cholesterol 262 mg/dL (140-199); Estimated Glomerular Filt Rate > 60 mL/min (>60); Globulin 3.5 g/dL (1.7-4.1); Glucose 95 mg/dL (80-110); HDL Cholesterol 49 mg/dL (40-60); HEMOLYSIS < 15 (0-50); LDL Cholesterol Calculated 195 mg/dL (<100); Potassium 4.1 mmol/L (3.4-5.1); Sodium 136 mmol/L (137-145); Total Protein 7.5 g/dL (6.3-8.2); Triglycerides 88 mg/dL (35-150)
[2021-11-06 16:39] LABS: TSH w/ Reflex to FT4 1.09 uIU/mL (0.47-4.68)
[2021-11-06 18:04] LABS: Vitamin D 25 Hydroxy (D3) 25.2 ng/mL (30.0-100.0)
== END ==
PROVIDERS: PCP Internal Medicine; Referring Provider Internal Medicine Pulmonary Disease; Visit Provider Internal Medicine Pulmonary Disease
DX: I10 Essential (primary) hypertension; E55.9 Vitamin D deficiency, unspecified; N20.0 Calculus of kidney; M85.80 Other specified disorders of bone density and structure, unspecified site; D86.0 Sarcoidosis of lung; R63.4 Abnormal weight loss
CPT/HCPCS: 36415; 80053; 80061; 82306; 84443; 85027

== ENCOUNTER → 2021-11-08 11:05 | Outpatient (CLI) | payer MEDICARE, SELFPAY ==
[2021-11-08 12:07] LABS: Add Manual Diff / Slide Review NO; Basophils Absolute Auto 100 /uL (0-100); Eosinophils Absolute Auto 200 /uL (0-450); Eosinophils Percent Auto 4.4 % (2-4); Hematocrit 44.8 % (36-46); Hemoglobin 15.1 g/dL (12.0-16.0); Lymphocytes Absolute Auto 700 /uL (1100-4500); Mean Corpuscular HGB Conc 33.7 % (30-36); Mean Corpuscular Hemoglobin 28.9 PG (26-34); Mean Corpuscular Volume 85.7 fL (80-100); Monocytes Absolute Auto 500 /uL (0-900); Monocytes Percent Auto 9.7 % (3-14); Neutrophils Absolute Auto 3900 /uL (1500-7000); Neutrophils Percent Auto 71.9 % (50-75); Platelet Count 403 X10^3/uL (150-400); Red Blood Cell Count 5.23 X10^6/uL (4.0-5.2); Red Cell Distribution Width 14.1 % (11.6-14.8); White Blood Cell Count 5.4 X10^3/uL (4.5-11.0)
[2021-11-17 10:52] LABS: 1,25-Dihydroxy, Vitamin D-2 <10 pg/mL (.)
== END ==
PROVIDERS: PCP Internal Medicine; Referring Provider Internal Medicine Pulmonary Disease; Visit Provider Internal Medicine Pulmonary Disease
DX: E55.9 Vitamin D deficiency, unspecified (principal); E86.9 Volume depletion, unspecified; N20.0 Calculus of kidney; M85.80 Other specified disorders of bone density and structure, unspecified site; E78.2 Mixed hyperlipidemia
CPT/HCPCS: 36415; 82652; 85025

== ENCOUNTER 2022-01-09 11:35 | Observation (INO) | payer MEDICARE, SELFPAY ==
[2022-01-09] VITALS (11 sets, daily range): BP systolic 144–169; BP diastolic 67–80; PULSE 76–94; RESP 15–25; TEMP 35.9–36.6; O2SAT 94–98; BMI 22.4; BMI 22.8
--- NOTE | 2022-01-09 11:47 | DI.RAD.S_ITS ---
PROCEDURE: XR CHEST 1V INDICATIONS: Possible stroke TECHNIQUE: One view of the chest was acquired. COMPARISON: [facility], , CHEST 1 VIEW, 08/26/2015, 11:55. FINDINGS: Surgical changes and devices: None. Lungs and pleura: Stable linear scarring of the right mid lung zone. Diffuse interstitial prominence. No focal consolidation. No substantial pleural effusion. No pneumothorax. Mediastinum: Mediastinal contours appear normal. Heart size is normal. Bones and chest wall: No suspicious bony lesions. Overlying soft tissues appear unremarkable. IMPRESSION: Diffuse interstitial prominence. No focal consolidation. Finding is nonspecific and may represent an infectious/inflammatory process versus pulmonary edema. Dictated by: Christopher Guardado M.D. on 01/09/2022 at 12:15 Approved by: Christopher Guardado M.D. on 01/09/2022 at 12:17
--- NOTE | 2022-01-09 11:57 | ED_ITS ---
HPI - Neuro Symptoms/Deficit General Chief Complaint: Neuro Symptoms/Deficit Stated Complaint: right hand, arm, leg, numbness Time Seen by Provider: 01/09/22 11:46 Source: patient Mode of arrival: Ambulatory History of Present Illness HPI Narrative: This 76-year-old woman comes to the ER today with a new neuro deficit. She says she woke up this morning around 8:00 a.m. and noticed that her right hand was a little bit tingly and perhaps slightly weak. She went back to sleep and then about 10:00 a.m. she got up and noticed that her right leg felt weak and kind of numb on the foot. This is happened episodically about 3 or 4 times since then with almost complete resolution followed by recurrence of symptoms lasting just a few minutes. She has had some unexpected no abnormal weight loss over the past few months. She has had loose stools that are not yet diagnosed over the past month or so and she has also had a full body rash that is been going on for 10 years without diagnosis. She denies personal history of vascular disease but 2 first-degree relatives had strokes in their 60s. She denies recent fever or chest symptoms. No injury. On Anticoagulants: No Related Data Home Medications Medication Instructions Recorded Confirmed losartan 50 mg tablet 50 mg PO DAILY 05/25/18 11/03/21 bepotastine besilate 1.5 % eye % ophthalmic (eye) 12/26/19 11/03/21 drops (Bepreve) estradiol 0.0375 mg/24 hr 1 patch transdermal 2XW 12/26/19 11/03/21 semiweekly transdermal patch (Vivelle-Dot) estradiol 10 mcg vaginal tablet 10 mcg vaginal 2XW 12/26/19 11/03/21 (Vagifem) albuterol sulfate 90 mcg/actuation 2 puff inhalation Q4-6H PRN 11/03/21 11/03/21 aerosol inhaler fluocinolone 0.01 % topical cream 1 applic topical BID 11/03/21 11/03/21 Previous Rx's Medication Instructions Recorded zolpidem 5 mg tablet 5 mg PO BEDTIME PRN Sleep #90 tabs 12/16/21 Allergies Allergy/AdvReac Type Severity Reaction Status Date / Time atorvastatin AdvReac Verified 01/09/22 11:48 codeine AdvReac Verified 01/09/22 11:48 meperidine [From Demerol] AdvReac Verified 01/09/22 11:48 General Anesthesia AdvReac Uncoded 11/21/20 10:41 Review of Systems Review of Systems Narrative: Complete review of systems is negative other than as noted. Hematologic/Lymphatic On Anticoagulants: No Patient History Medical History (Updated 01/09/22 @ 13:18 by Mich Harden MD) Abnormal Pap smear of cervix Actinic keratosis Allergies Dupuytren contracture (~2009) Eczema Eczematous dermatitis Essential hypertension GERD (gastroesophageal reflux disease) Hemorrhoid History of vaginal delivery Hypercholesterolemia Hypertension (~2012) Kidney stones Menopausal syndrome Mixed hyperlipidemia Osteopenia (~2020) Pulmonary sarcoidosis Recurrent nephrolithiasis Sarcoidosis (~2009) Shoulder pain Skin rash Weight loss, abnormal Surgical History Anesthesia H/O hysterectomy for benign disease (~1972) History of anterior colporrhaphy History of mastopexy (~2006) History of surgery (~05/31/07) History of surgery on arm (~1972) History of surgery on arm (~2007) History of tubal ligation (~1969) Family History Father Psoriasis Mother Cancer Diabetes mellitus History of heart disease Hyperlipidemia Hypertension Stroke Brother Psoriasis Brother Dialysis patient Sister Psoriasis Psoriatic arthritis Sister Waldenstroms macroglobulinemia Grandfather History of heart disease Grandmother Stroke Grandfather Pneumonia Grandmother Cancer Family/Other Hyperlipidemia Psoriasis Social History household members: friend(s) Smoking Status: Never smoker Smoking Status: Never smoker alcohol intake frequency: holidays/special occasions only Substance Use Type: does not use Exam Narrative Exam Narrative: GENERAL: Alert, cooperative and in no distress. HEAD: Atraumatic. Normocephalic. EYES: Sclera are clear without icterus. Extraocular movements are full. ENT: No rhinorrhea. Oropharynx is moist. Mouth exam is benign. NECK: Supple. Full range of motion. CARDIOVASCULAR: Normal rate and rhythm without murmur gallop or rub. RESPIRATORY: Clear to auscultation. Breath sounds equal bilaterally. No wheezes, rales, or rhonchi. GASTROINTESTINAL: Abdomen soft, non-tender, nondistended. EXTREMITIES: No edema, full range of motion. No obvious trauma. BACK: Normal inspection, no CVA tenderness. NEURO: Nonfocal examination, normal speech. Complete NIH stroke score is 1. She has slightly increased sensation to sharp presents in the right face and slightly decreased in the right lower extremity SKIN: No rash or erythema of visible areas PSYCH: Normally oriented. Normal range of affect. Appropriate behavior Initial Vital Signs Initial Vital Signs: Vital Signs Pulse Rate 94 H 01/09/22 11:42 Pulse Oximetry 95 01/09/22 11:42 Course Orders Ordered: ED Orders 01/09/22 11:47 XR chest 1V Stat Urine Drug Screen, Rapid Stat EKG-12 Lead Stat 01/09/22 11:49 Complete Blood Count AUTO DIFF Stat Comprehensive Metabolic Panel Stat Magnesium Stat Partial Thromboplastin Time Stat Prothrombin Time INR Stat Troponin & CK Cardiac Panel Stat 01/09/22 12:06 CT angio head and neck Stat 01/09/22 12:37 COVID19 - ADMIT ([employer] [employer] swab/PCR) Stat Consultations Consultation #1: SPoke to Jacobo from hospitalist service who agrees to admit. Vital Signs Vital signs: Vital Signs - 8 hr 01/09/22 11:43 01/09/22 11:42 01/09/22 11:43 Temperature 97.9 F Pulse Rate 90 94 H 91 H Respiratory Rate 15 Blood Pressure 155/71 H Pulse Oximetry 96 95 95 Oxygen Delivery Method Room Air 01/09/22 11:43 01/09/22 12:11 01/09/22 12:30 Temperature Pulse Rate 86 83 Respiratory Rate 20 Blood Pressure 155/71 H Pulse Oximetry 95 95 Oxygen Delivery Method MDM - Neuro Symptoms/Deficit Lab Data Result diagrams: 01/09/22 11:49 01/09/22 11:49 Labs: Lab Results 01/09/22 01/09/22 01/09/22 Range/Units 11:49 11:49 11:49 WBC 7.1 (4.5-11.0) X10^3/uL RBC 5.32 H (4.0-5.2) X10^6/uL Hgb 15.6 (12.0-16.0) g/dL Hct 45.7 (36-46) % MCV 85.9 (80-100) fL MCH 29.2 (26-34) PG MCHC 34.0 (30-36) % RDW 14.3 (11.6-14.8) % Plt Count 418 H (150-400) X10^3/uL Neut % (Auto) 73.9 (50-75) % Lymph % (Auto) 10.9 L (25-40) % [place] % (Auto) 11.2 (3-14) % Eos % (Auto) 3.2 (2-4) % Baso % (Auto) 0.8 (0-2) % Neut # (Auto) 5200 (6645-6893) /uL Lymph # (Auto) 800 L (1639-0374) /uL [place] # (Auto) 800 (0-900) /uL Eos # (Auto) 200 (0-450) /uL Baso # (Auto) 100 (0-100) /uL PT 12.2 (10.1-12.7) SECONDS INR 1.1 (0.9-1.3) APTT 43 H (26.4-36.2) SECONDS Sodium 138 (137-145) mmol/L Potassium 4.0 (3.4-5.1) mmol/L Chloride 105 (98-107) mmol/L Carbon Dioxide 22 (22-32) mmol/L BUN 17 (7-17) mg/dL Creatinine 0.71 (0.52-1.04) mg/dL Estimated GFR > 60 (>60) mL/min BUN/Creatinine Ratio 23.9 H (6-22) Glucose 95 (80-110) mg/dL Calcium 9.2 (8.4-10.2) mg/dL Magnesium 2.2 (1.6-2.3) mg/dL Total Bilirubin 0.4 (0.2-1.3) mg/dL AST 24 (14-36) IU/L ALT 15 (<35) IU/L Alkaline Phosphatase 77 (38-126) U/L Total Creatine Kinase 41 (30-135) U/L CK-MB (CK-2) TNP CK-MB (CK-2) Rel Index TNP Troponin I < 0.012 (0.01-0.034) ng/mL Total Protein 7.9 (6.3-8.2) g/dL Albumin 4.4 (3.5-5.0) g/dL Globulin 3.5 (1.7-4.1) g/dL Albumin/Globulin Ratio 1.3 (1.0-2.8) Imaging Data CTA - brain/neck: Radiologist's Impression: IMPRESSION:? ? No acute intracranial finding. ? No intracranial large vessel arterial occlusion. ? No hemodynamically significant stenosis of the major intracranial or extracranial arterial circulation. ? Any quantitative measurements of stenosis were performed using NASCET criteria.? ? ? Dictated by: Fabian Garcia M.D. on 01/09/2022 at 12:37 ? ? Approved by: Fabian Garcia M.D. on 01/09/2022 at 12:39 ? Chest x-ray: Radiologist's Impression: IMPRESSION:? Diffuse interstitial prominence.? No focal consolidation.? Finding is nonspecific and may represent an infectious/inflammatory process versus pulmonary edema. ? ? Dictated by: Christopher Guardado M.D. on 01/09/2022 at 12:15 ? ? Approved by: Christopher Guardado M.D. on 01/09/2022 at 12:17 ? MDM Narrative Medical decision making narrative: Will admit for further workup. I am concerned that this represents ischemic stroke. Will give aspirin now. Will admit to hospitalist. Discharge Plan Departure Patient Disposition: Admitted As Inpatient Clinical Impression: Cerebrovascular accident, Abnormal loss of weight Prescriptions: No Action zolpidem 5 mg tablet 5 mg PO BEDTIME PRN (Reason: Sleep) Qty: 90 1RF fluocinolone 0.01 % cream 1 applic topical BID albuterol sulfate 90 mcg/actuation HFA aerosol inhaler 2 puff inhalation Q4-6H PRN estradiol [Vivelle-Dot] 0.0375 mg/24 hr Patch Semiweekly 1 patch TRANSDERMAL 2XW Bepreve 1.5 % Drops OPHTHALMIC (EYE) estradiol [Vagifem] 10 mcg Tablet 10 mcg VAGINAL 2XW losartan 50 mg Tablet 50 mg PO DAILY Referrals: Jose Briggs MD [Primary Care Provider] -
[2022-01-09 11:58] LABS: Add Manual Diff / Slide Review NO; Basophils Absolute Auto 100 /uL (0-100); Basophils Percent Auto 0.8 % (0-2); Eosinophils Absolute Auto 200 /uL (0-450); Eosinophils Percent Auto 3.2 % (2-4); Hematocrit 45.7 % (36-46); Hemoglobin 15.6 g/dL (12.0-16.0); Lymphocytes Absolute Auto 800 /uL (1100-4500); Lymphocytes Percent Auto 10.9 % (25-40); Mean Corpuscular Hemoglobin 29.2 PG (26-34); Mean Corpuscular Volume 85.9 fL (80-100); Monocytes Absolute Auto 800 /uL (0-900); Monocytes Percent Auto 11.2 % (3-14); Neutrophils Absolute Auto 5200 /uL (1500-7000); Neutrophils Percent Auto 73.9 % (50-75); Platelet Count 418 X10^3/uL (150-400); Red Blood Cell Count 5.32 X10^6/uL (4.0-5.2); Red Cell Distribution Width 14.3 % (11.6-14.8); White Blood Cell Count 7.1 X10^3/uL (4.5-11.0)
--- NOTE | 2022-01-09 12:06 | DI.CT.S_ITS ---
PROCEDURE: CT ANGIO HEAD AND NECK INDICATIONS: Possible stroke TECHNIQUE: Pre-contrast 4.5 mm thick sections acquired from the foramen magnum to the vertex. After the administration of intravenous contrast, 1 mm thick sections acquired from the aortic arch through the [place] of [place]. Post-contrast 4.5 mm thick sections then re-acquired from the foramen magnum to the vertex. 3-dimensional cgmdcdc-ywhjhkzix-kkcbqfcmsa (MIP) and/or volume rendering reformats were acquired of the central intracranial vasculature and neck separately. For radiation dose reduction, the following was used: automated exposure control, adjustment of mA and/or kV according to patient size. COMPARISON: None. FINDINGS: Image quality: Excellent. BRAIN: CSF spaces: Ventricles are normal in size and shape. Basal cisterns are patent. No extra-axial fluid collections. Brain: No midline shift. No intracranial bleeds or masses. Doyle-white matter interface appears intact. Skull and face: Calvarium and facial bones appear intact, without suspicious lesions. Orbits appear normal. Sinuses: Sinuses and mastoids are clear. HEAD CT ANGIOGRAPHY: Anterior circulation: Intracranial internal carotid arteries are normal in size and flow. The flow within the paired anterior cerebral arteries is normal and symmetric. The flow within the middle cerebral arteries is normal and symmetric. The anterior communicating artery is seen. No aneurysms are seen. Posterior circulation: Visualized portions of the vertebral arteries demonstrate normal caliber, and join to form a normal appearing basilar artery. Flow within the posterior cerebral arteries is normal and symmetric. No aneurysms are seen. NECK CT ANGIOGRAPHY: Carotid system: The great vessels demonstrate a conventional anatomy as they arise from the aortic arch. The origins of the common carotid arteries appear patent. The common carotid arteries demonstrate normal caliber and courses. The bifurcation regions are both widely patent. The internal carotid arteries demonstrate normal calibers and courses. Posterior circulation: The origins of the vertebral arteries both appear widely patent. The more superior extracranial portions of both vertebral arteries also demonstrate normal courses and calibers. They join to form a normal appearing basilar artery. Soft tissues: Visualized neck soft tissues demonstrate no suspicious abnormalities. Bones: No suspicious bony lesions. Visualized cervical spine appears normally aligned. IMPRESSION: No acute intracranial finding. No intracranial large vessel arterial occlusion. No hemodynamically significant stenosis of the major intracranial or extracranial arterial circulation. Any quantitative measurements of stenosis were performed using NASCET criteria. Dictated by: Fabian Garcia M.D. on 01/09/2022 at 12:37 Approved by: Fabian Garcia M.D. on 01/09/2022 at 12:39
[2022-01-09 12:11] LABS: Alanine Aminotransferase 15 IU/L (<35); Albumin 4.4 g/dL (3.5-5.0); Albumin Globulin Ratio 1.3 (1.0-2.8); Alkaline Phosphatase 77 U/L (38-126); Aspartate Aminotransferase 24 IU/L (14-36); BUN Creatinine Ratio 23.9 (6-22); Bilirubin Total 0.4 mg/dL (0.2-1.3); Blood Urea Nitrogen 17 mg/dL (7-17); Calcium 9.2 mg/dL (8.4-10.2); Carbon Dioxide 22 mmol/L (22-32); Chloride 105 mmol/L (98-107); Creatine Kinase 41 U/L (30-135); Estimated Glomerular Filt Rate > 60 mL/min (>60); Globulin 3.5 g/dL (1.7-4.1); Glucose 95 mg/dL (80-110); HEMOLYSIS < 15 (0-50); Magnesium 2.2 mg/dL (1.6-2.3); Sodium 138 mmol/L (137-145); Total Protein 7.9 g/dL (6.3-8.2)
[2022-01-09 12:22] LABS: INR 1.1 (0.9-1.3); Prothrombin Time 12.2 SECONDS (10.1-12.7); Troponin I < 0.012 ng/mL (0.01-0.034)
[2022-01-09 12:24] LABS: PTT Partial Thromboplastin Tim 43 SECONDS (26.4-36.2)
--- NOTE | 2022-01-09 12:35 | PC.NURSE ---
no drift with right leg, but weaker, making more effort to hold up right leg versus left. sensation for exam: report more dull/less sensation to left face report more sensation/sharper to right face report equal sensation right and left upper extremities report right leg more dull/less sensation report left leg more sensation/sharper
[2022-01-09 14:33] LABS: COVID19 -Nasal RAPID Negative (Negative)
--- NOTE | 2022-01-09 14:33 | DI.ECHO.S_ITS ---
[facility] +---------+ : : [address] : : : : [id number] : : : : Phone: [phone] Echocardiogram Report + :Name: MARY COLEMAN Study Date: 01/09/2022 Height: 62 in : :[facility] ReadingLocation: Weight: 123 lb : : Gender: Female BSA: 1.6 m2 : :: 1945 Age: 76 yrs BP: 144/67 mmHg: :Reason For Study: TIA : :Ordering Physician: Nena, : :Yang Performed By: Yahir Ramirez : :Referring: Yang Barrett : + Interpretation Summary Normal sinus rhythm. Normal LV size; borderline concentric LVH; normal wall motion and LV systolic function. EF is 55-60%. Normal chamber sizes. Moderate MAC; otherwise no significant valvular abnormalities. No PFO is present based on agitated saline study. No prior study available for comparison. No source of embolism found. Procedure: A two-dimensional transthoracic echocardiogram with color flow and Doppler was performed. The study quality was technically adequate. There is no prior echocardiogram noted for this patient. A saline contrast injection was performed to assess for cardiac shunting. The patient was in normal sinus rhythm during the exam. Left Ventricle: The left ventricle is normal in size. Left ventricular wall thickness is borderline increased. Left ventricular systolic function is normal. The ejection fraction is estimated to be 55-60%. There are no focal wall motion abnormalities. Diastolic function could not be accurately assessed due to unobtainable data. Right Ventricle: The right ventricle is normal in size and function. Atria: Both atria are normal in size. The interatrial septum grossly appears intact with no obvious evidence for an atrial septal defect. Late bubbles visualized on left side (intrapulmonary shunt). Mitral Valve: There is moderate mitral annular calcification. There is mild mitral regurgitation. Aortic Valve: The aortic valve is normal in structure and function. There is mild aortic regurgitation. Tricuspid Valve: The tricuspid valve is normal in structure and function. There is mild tricuspid regurgitation. Pulmonary artery pressures cannot be estimated because of the lack of a measurable TR jet velocity. Pulmonic Valve: The pulmonic valve is not well seen, but is grossly normal. Great Vessels: The aortic root is normal size. The dimensions of the ascending aorta are normal. The IVC is of normal diameter and collapses greater than 50% with a sniff. This suggests a low right atrial pressure of 3 mm Hg. Pericardium/ Pleura There is no pericardial effusion. There is no pleural effusion. MMode/2D Measurements & Calculations LVIDd: 4.2 cm LVOT diam: 2.0 cm LVIDs: 3.0 cm Ao root diam: 3.1 cm FS: 29.1 % asc Aorta Diam: 3.3 cm IVSd: 1.1 cm LVPWd: 0.90 cm LV cannon. diameter/BSA (cm/m^2): 2.7 LV sys. diameter/BSA (cm/m^2): 1.9 LA A2 area: 11.7 cm2 RA long axis: 4.0 cm LA A4 area: 12.0 cm2 RA area: 9.3 cm2 LA length (vol): 3.8 cm RA vol: 18.6 ml LA vol: 31.1 ml RA : 12.0 ml/m2 LA vol index: 20.0 ml/m2 TAPSE: 2.0 cm Doppler Measurements & Calculations Ao V2 max: 106.1 cm/sec LVOT Max Alex: 89.1 cm/sec Ao V2 mean: 67.7 cm/sec LV V1 max P.2 mmHg Ao max P.5 mmHg LV V1 VTI: 16.9 cm Ao mean P.1 mmHg JOSELYN(I,D): 2.8 cm2 Ao V2 VTI: 18.4 cm JOSELYN(V,D): 2.5 cm2 sev ratio: 0.92 JOSELYN indexed to BSA (cm^2/m^2): 1.8 SV(LVOT): 51.0 ml Electronically signed by: Thea Huang M.D. on Reading Physician:01/09/2022 08:03 PM
--- NOTE | 2022-01-09 14:33 | DI.MRI.S_ITS ---
PROCEDURE: MR HEAD/BRAIN WO CON INDICATIONS: TIA TECHNIQUE: Non-contrast axial T1 spin echo, axial T2 fast spin echo, sagittal and axial FLAIR, coronal T2 fast spin echo, axial gradient echo, axial diffusion and ADC through the brain. COMPARISON: [facility], CT, CT ANGIO HEAD AND NECK, 01/09/2022, 11:54. FINDINGS: Image quality: Excellent. CSF spaces: Ventricles appear symmetric in size and shape. Basal cisterns are patent. No extra-axial fluid collections. Brain: No intracranial bleeds or mass effects. There is cerebral volume loss for age. There are periventricular and deep white matter chronic small vessel ischemic changes. Brainstem appears normal. Diffusion-weighted images show no acute ischemic insults. No chronic ischemic insults. Normal intravascular flow voids are present. Skull and face: Calvarial bone marrow is normal in signal. Orbits are normal. Sinuses: Sinuses and mastoids are clear. IMPRESSION: No findings of acute or subacute infarction can be seen. Note is made of age-appropriate brain parenchymal volume loss and chronic small vessel ischemic changes. Dictated by: Riki Scott M.D. on 01/09/2022 at 14:54 Approved by: Riki Scott M.D. on 01/09/2022 at 14:56
--- NOTE | 2022-01-09 14:34 | PM.HP.1 ---
History of Present Illness History of Present Illness Chief complaint: right hand, arm, leg, numbness Narrative: Ms. Kumar is a very pleasant 76-year-old female with a significant history of sarcoidosis and hypertension started having intermittent right upper extremity and right lower extremity tingling numbness and weakness along with right facial numbness 2 episodes. Patient had these episodes starting at 8:00 a.m. this morning persisted for 5-10 minutes approximately, relieved with rest. Patient got concerned and came to the ER around noon because she had 3 episodes by that time also had an episode in the ER but resolved very quickly. NIH score done in the ER assessment shows positive for 1, she returned to her baseline. Patient at this time denies any specific symptoms. She does seem to be mildly anxious about the recurrent deficits. She denies any visual changes, headaches, nausea, vomiting, any other specific neurological symptoms. Patient denies any ill contacts. Patient did not had such episodes in the past. She denies any apparent stress. Patient History Medical History Abnormal Pap smear of cervix Actinic keratosis Allergies Dupuytren contracture (~2009) Eczema Eczematous dermatitis Essential hypertension GERD (gastroesophageal reflux disease) Hemorrhoid History of vaginal delivery Hypercholesterolemia Hypertension (~2012) Kidney stones Menopausal syndrome Mixed hyperlipidemia Osteopenia (~2020) Pulmonary sarcoidosis Recurrent nephrolithiasis Sarcoidosis (~2009) Shoulder pain Skin rash Weight loss, abnormal Surgical History Anesthesia H/O hysterectomy for benign disease (~1972) History of anterior colporrhaphy History of mastopexy (~2006) History of surgery (~05/31/07) History of surgery on arm (~1972) History of surgery on arm (~2007) History of tubal ligation (~1969) Family & Social History Family History Father Psoriasis Mother Cancer Diabetes mellitus History of heart disease Hyperlipidemia Hypertension Stroke Brother Psoriasis Brother Dialysis patient Sister Psoriasis Psoriatic arthritis Sister Waldenstroms macroglobulinemia Grandfather History of heart disease Grandmother Stroke Grandfather Pneumonia Grandmother Cancer Family/Other Hyperlipidemia Psoriasis Social History: household members friend(s) Safety & Behavioral: Feels Safe in Current Yes Environment Been Physically Hurt or No Threatened By a Person Tobacco & Substance use: Smoking Status Never smoker alcohol intake frequency holiday/special occasion Substance Use Type does not use Meds Home Medications and Allergies Home Medications Medication Instructions Recorded Confirmed Type losartan 50 mg tablet 50 mg PO DAILY 05/25/18 11/03/21 History bepotastine besilate 1.5 % eye % ophthalmic (eye) 12/26/19 11/03/21 History drops (Bepreve) estradiol 0.0375 mg/24 hr 1 patch transdermal 2XW 12/26/19 11/03/21 History semiweekly transdermal patch (Vivelle-Dot) estradiol 10 mcg vaginal tablet 10 mcg vaginal 2XW 12/26/19 11/03/21 History (Vagifem) albuterol sulfate 90 mcg/actuation 2 puff inhalation Q4-6H PRN 11/03/21 11/03/21 History aerosol inhaler fluocinolone 0.01 % topical cream 1 applic topical BID 11/03/21 11/03/21 History zolpidem 5 mg tablet 5 mg PO BEDTIME PRN Sleep #90 tabs 12/16/21 Rx Allergies Allergy/AdvReac Type Severity Reaction Status Date / Time atorvastatin AdvReac Verified 01/09/22 11:48 codeine AdvReac Verified 01/09/22 11:48 meperidine [From Demerol] AdvReac Verified 01/09/22 11:48 General Anesthesia AdvReac Uncoded 11/21/20 10:41 Review of Systems Review of Systems Narrative: No chest pain no nausea no vomiting. Constitutional, cardiovascular, respiratory, GI, , musculoskeletal, neurologic, psych, endocrine, allergy immunology review of systems performed, negative other than as mentioned above in HPI. Exam Vital Signs (past 8 hours): - 01/09/22 11:43 01/09/22 11:42 01/09/22 11:43 Temperature 97.9 F Pulse Rate 90 94 H 91 H Respiratory Rate 15 Blood Pressure 155/71 H Pulse Oximetry 96 95 95 Oxygen Delivery Method Room Air 01/09/22 11:43 01/09/22 12:11 01/09/22 12:30 Temperature Pulse Rate 86 83 Respiratory Rate 20 Blood Pressure 155/71 H Pulse Oximetry 95 95 Oxygen Delivery Method 01/09/22 13:00 01/09/22 13:30 01/09/22 14:11 Temperature Pulse Rate 79 84 89 Respiratory Rate 19 23 17 Blood Pressure Pulse Oximetry 94 96 96 Oxygen Delivery Method 01/09/22 14:12 01/09/22 14:12 01/09/22 14:13 Temperature Pulse Rate 86 Respiratory Rate 25 H Blood Pressure 165/70 H 144/67 H Pulse Oximetry 98 Oxygen Delivery Method Oxygen Delivery Method Room Air Narrative Exam Narrative: Patient is comfortable, sitting in the bed, able to make a reasonable conversation, following commands nicely. Did an extensive neurological evaluation, did not show any apparent deficits. No sensory or neurological deficits patient ambulating without any difficulties. No unsteady gait. Constitutional, HEENT, neck, cardiovascular, respiratory, , skin, psych, neuro examination done, findings as mentioned above. Objective Labs Result Diagrams: 01/09/22 11:49 01/09/22 11:49 Labs: Laboratory Results - last 24 hr 01/09/22 01/09/22 01/09/22 11:49 11:49 11:49 WBC 7.1 RBC 5.32 H Hgb 15.6 Hct 45.7 MCV 85.9 MCH 29.2 MCHC 34.0 RDW 14.3 Plt Count 418 H Neut % (Auto) 73.9 Lymph % (Auto) 10.9 L [place] % (Auto) 11.2 Eos % (Auto) 3.2 Baso % (Auto) 0.8 Neut # (Auto) 5200 Lymph # (Auto) 800 L [place] # (Auto) 800 Eos # (Auto) 200 Baso # (Auto) 100 PT 12.2 INR 1.1 APTT 43 H Sodium 138 Potassium 4.0 Chloride 105 Carbon Dioxide 22 BUN 17 Creatinine 0.71 Estimated GFR > 60 BUN/Creatinine Ratio 23.9 H Glucose 95 Calcium 9.2 Magnesium 2.2 Total Bilirubin 0.4 AST 24 ALT 15 Alkaline Phosphatase 77 Total Creatine Kinase 41 CK-MB (CK-2) TNP CK-MB (CK-2) Rel Index TNP Troponin I < 0.012 Total Protein 7.9 Albumin 4.4 Globulin 3.5 Albumin/Globulin Ratio 1.3 SARS-CoV-2 (PCR) 01/09/22 14:08 WBC RBC Hgb Hct MCV MCH MCHC RDW Plt Count Neut % (Auto) Lymph % (Auto) [place] % (Auto) Eos % (Auto) Baso % (Auto) Neut # (Auto) Lymph # (Auto) [place] # (Auto) Eos # (Auto) Baso # (Auto) PT INR APTT Sodium Potassium Chloride Carbon Dioxide BUN Creatinine Estimated GFR BUN/Creatinine Ratio Glucose Calcium Magnesium Total Bilirubin AST ALT Alkaline Phosphatase Total Creatine Kinase CK-MB (CK-2) CK-MB (CK-2) Rel Index Troponin I Total Protein Albumin Globulin Albumin/Globulin Ratio SARS-CoV-2 (PCR) Negative Assessment & Plan Assessment & Plan narrative: TIA -involving right upper extremity, lower extremity-q.4 hours neuro checks, telemetry, MRI stroke protocol, echocardiogram. CT angio done in the ER did not show any LVO, carotid artery no occlusion. History of sarcoidosis, not on any therapy, intermittent pulmonary exacerbations, treated appropriately with inhalers Hypertension, well controlled, resume home medication Patient was given aspirin, allergic to statin, unable to give statin Low risk for DVT, SCDs for DVT prophylaxis Patient ambulating well, did not see any value in adding any PTOT evaluation at this time Follow up on MRI, echocardiogram, potential DC in the morning Time Spent With Patient Critical Care time: I spent a total of [] minutes of critical care time on this patient's care today; this time is exclusive of procedural time.
[2022-01-09] MEDS: ASPIRIN 325 MG TABLET PO (14:43)
[2022-01-09] MEDS: ACETAMINOPHEN 325 MG TABLET 650 MG PO (16:46)
--- NOTE | 2022-01-09 18:55 | PC.NURSE ---
P arrived to room 223 from ED A&OX3, ambulating with steady gait. She denies any altered sensation or strength in R side, speech is clear, face symmetrical and she appears neuro intact. She has ECHO, EKG and MRI this afternoon. She complains of moderate head and neck pain this evening, noted BP elevated. Per patient this is abnormal for her. Noted rashe to extremities and back patient states she has had for years that her MD thinks may be an allergy. VSS, afebrile on RA. On tele she is NSR with AVB
[2022-01-10] VITALS: BP 151/70; PULSE 76; RESP 16; TEMP 36.6; O2SAT 95
[2022-01-10 04:00] VITALS: BP 148/59; PULSE 68; RESP 18; TEMP 36.7; O2SAT 95
[2022-01-10 06:22] LABS: UR Morphine/Opiate cutoff 300 Negative (Negative); Ur Creatinine Normal (Normal); Ur Specific Gravity Normal (Normal); Urine Amphetamines Negative (Negative); Urine Barbiturates Negative (Negative); Urine Benzodiazepines Negative (Negative); Urine Cocaine Negative (Negative); Urine MDMA Negative (Negative); Urine Methadone Negative (Negative); Urine Methamphetamines Negative (Negative); Urine Oxycodone Negative (Negative); Urine Phencyclidine Negative (Negative); Urine Tetrahydrocannabinol Negative (Negative); Urine Tricyclic Antidepressant Negative (Negative); Urine pH Normal (Normal)
[2022-01-10 08:15] VITALS: BP 159/74; PULSE 72; RESP 16; TEMP 36.2; O2SAT 95
[2022-01-10] MEDS: LOSARTAN 50 MG TABLET PO (08:38)
[2022-01-10] MEDS: ASPIRIN EC 81 MG TABLET PO (08:38)
--- NOTE | 2022-01-10 08:54 | P.DS_ITS ---
History of Present Illness History of Present Illness Date Patient Seen: 01/10/22 Time Patient Seen: 11:00 Chief complaint: right hand, arm, leg, numbness Narrative: Ms. Kumar is a very pleasant 76-year-old female with a significant history of sarcoidosis and hypertension started having intermittent right upper extremity and right lower extremity tingling numbness and weakness along with right facial numbness 2 episodes.? Patient had these episodes starting at 8:00 a.m. this morning persisted for 5-10 minutes approximately, relieved with rest.? Patient got concerned and came to the ER around noon because she had 3 episodes by that time also had an episode in the ER but resolved very quickly.? NIH score done in the ER assessment shows positive for 1, she returned to her baseline.? Patient at this time denies any specific symptoms.? She does seem to be mildly anxious about the recurrent deficits.? She denies any visual changes, headaches, nausea, vomiting, any other specific neurological symptoms.? Patient denies any ill contacts.? Patient did not had such episodes in the past.? She denies any apparent stress. Discharge Providers Provider Date of admission: 01/09/22 13:18 Discharge Date: 01/10/22 Primary care physician: Jose Briggs MD Discharge provider: Anshul Quinteros DO Summary Hospital Course Discharge Diagnosis: TIA -involving right upper extremity, lower extremity History of sarcoidosis Hypertension HLD Hospital Course: Patient admitted for acute waxing and waning right hand numbness and tingling with right lower extremity weakness. Concern was for TIA so patient admitted for stroke workup but had negative CTA head and neck, negative MRI brain and normal echocardiogram. Her ABCD2 score was 4 indicating dual anti-platelet therapy recommended. Patient received a dose of aspirin and Plavix but stated she had an adverse reaction to the Plavix. After discussion she elected to take aspirin daily and not Plavix. She will talk with her PCP about adding a statin as she has experienced myalgias to statins in the past. She was found to be on estradiol patch as well as vaginal estradiol, for which she was not sure why she is on them. She was instructed to stop these medications and discuss this with her PCP as they can substantially increase the risk of stroke. She had no return of symptoms so was discharged home. Exam Vital Signs (past 8 hours): - 01/10/22 04:00 01/10/22 08:15 Temperature 98.0 F 97.2 F L Pulse Rate 68 72 Respiratory Rate 18 16 Blood Pressure 148/59 H 159/74 H Pulse Oximetry 95 95 Oxygen Flow Rate 0 0 Oxygen Delivery Method Room Air Oxygen Flow Rate 0 Narrative Exam Narrative: GEN: no acute distress HEENT: moist mucous membranes, PERRL NECK: trachea midline, no JVD CV: regular rate and rhythm, no murmurs PULM: clear bilaterally ABD: soft, nontender, nondistended, no organomegaly EXT: warm and well perfused with no edema NEURO: awake, alert, oriented, no focal deficits Objective Labs Result Diagrams: 01/09/22 11:49 01/09/22 11:49 Labs: Laboratory Results - last 24 hr 01/09/22 01/09/22 01/09/22 11:49 11:49 11:49 WBC 7.1 RBC 5.32 H Hgb 15.6 Hct 45.7 MCV 85.9 MCH 29.2 MCHC 34.0 RDW 14.3 Plt Count 418 H Neut % (Auto) 73.9 Lymph % (Auto) 10.9 L [place] % (Auto) 11.2 Eos % (Auto) 3.2 Baso % (Auto) 0.8 Neut # (Auto) 5200 Lymph # (Auto) 800 L [place] # (Auto) 800 Eos # (Auto) 200 Baso # (Auto) 100 PT 12.2 INR 1.1 APTT 43 H Sodium 138 Potassium 4.0 Chloride 105 Carbon Dioxide 22 BUN 17 Creatinine 0.71 Estimated GFR > 60 BUN/Creatinine Ratio 23.9 H Glucose 95 Calcium 9.2 Magnesium 2.2 Total Bilirubin 0.4 AST 24 ALT 15 Alkaline Phosphatase 77 Total Creatine Kinase 41 CK-MB (CK-2) TNP CK-MB (CK-2) Rel Index TNP Troponin I < 0.012 Total Protein 7.9 Albumin 4.4 Globulin 3.5 Albumin/Globulin Ratio 1.3 U Opiates 300ng/mL cut Ur Oxycodone Screen Urine Methadone Screen Ur Barbiturates Screen U Tricyclic Antidepress Ur Phencyclidine Scrn Ur Amphetamines Screen U Methamphetamines Scrn Ur MDMA Scrn (Ecstasy) U Benzodiazepines Scrn Urine Cocaine Screen U Marijuana (THC) Screen SARS-CoV-2 (PCR) 01/09/22 01/09/22 13:57 14:08 WBC RBC Hgb Hct MCV MCH MCHC RDW Plt Count Neut % (Auto) Lymph % (Auto) [place] % (Auto) Eos % (Auto) Baso % (Auto) Neut # (Auto) Lymph # (Auto) [place] # (Auto) Eos # (Auto) Baso # (Auto) PT INR APTT Sodium Potassium Chloride Carbon Dioxide BUN Creatinine Estimated GFR BUN/Creatinine Ratio Glucose Calcium Magnesium Total Bilirubin AST ALT Alkaline Phosphatase Total Creatine Kinase CK-MB (CK-2) CK-MB (CK-2) Rel Index Troponin I Total Protein Albumin Globulin Albumin/Globulin Ratio U Opiates 300ng/mL cut Negative Ur Oxycodone Screen Negative Urine Methadone Screen Negative Ur Barbiturates Screen Negative U Tricyclic Antidepress Negative Ur Phencyclidine Scrn Negative Ur Amphetamines Screen Negative U Methamphetamines Scrn Negative Ur MDMA Scrn (Ecstasy) Negative U Benzodiazepines Scrn Negative Urine Cocaine Screen Negative U Marijuana (THC) Screen Negative SARS-CoV-2 (PCR) Negative PFSH Medical History Abnormal Pap smear of cervix Actinic keratosis Allergies Dupuytren contracture (~2009) Eczema Eczematous dermatitis Essential hypertension GERD (gastroesophageal reflux disease) Hemorrhoid History of vaginal delivery Hypercholesterolemia Hypertension (~2012) Kidney stones Menopausal syndrome Mixed hyperlipidemia Osteopenia (~2020) Pulmonary sarcoidosis Recurrent nephrolithiasis Sarcoidosis (~2009) Shoulder pain Skin rash Weight loss, abnormal Surgical History Anesthesia H/O hysterectomy for benign disease (~1972) History of anterior colporrhaphy History of mastopexy (~2006) History of surgery (~05/31/07) History of surgery on arm (~1972) History of surgery on arm (~2007) History of tubal ligation (~1969) Family History Father Psoriasis Mother Cancer Diabetes mellitus History of heart disease Hyperlipidemia Hypertension Stroke Brother Psoriasis Brother Dialysis patient Sister Psoriasis Psoriatic arthritis Sister Waldenstroms macroglobulinemia Grandfather History of heart disease Grandmother Stroke Grandfather Pneumonia Grandmother Cancer Family/Other Hyperlipidemia Psoriasis Social History household members: friend(s) Smoking Status: Never smoker alcohol intake: current Discharge Plan Discharge Plan Patient Disposition: Home Provider Discharge Comment: You were admitted for a possible mini-stroke a brain MRI scan, CT scan of your head and neck and ultrasound of your heart which were all look good. We discussed dual anti-platelet therapy with aspirin and Plavix is indicated based on your moderate risk of having a true stroke, but since you do not tolerate the Plavix we will do aspirin alone indefinitely. Please take an 81 mg baby aspirin daily to prevent recurrent stroke. Aspirin also has the added side effect of preventing heart disease and colon cancer. You may take her fish oil supplements while on aspirin. Please STOP your vagifem and vivelle dot estrogen meds as these increase the risk of stroke substantially. Ta ke with your PCP about a cholesterol med you can take that won't cause myalgias. If you experience similar symptoms such as numbness, tingling, weakness or visual changes please call your PCP or return to the ER immediately. Discharge orders & Medications Prescriptions: New aspirin 81 mg capsule 81 mg PO DAILY 90 Days Qty: 90 3RF Continued zolpidem 5 mg tablet 5 mg PO BEDTIME PRN (Reason: Sleep) Qty: 90 1RF fluocinolone 0.01 % cream 1 applic topical BID albuterol sulfate 90 mcg/actuation HFA aerosol inhaler 2 puff inhalation Q4-6H PRN (Reason: Respiratory Distress) losartan 50 mg Tablet 50 mg PO DAILY Discontinued estradiol [Vagifem] 10 mcg Tablet 10 mcg VAGINAL 2XW Follow up/Referrals: Jose Briggs MD [Primary Care Provider] - Diet/Activity/Treatments Diet: Regular Activity: No restrictions. Discharge Data Primary Care Provider: Jose Briggs V Attending Provider: Yang Barrett VTE Deep Vein Thrombosis/Pulmonary Embolism Present on Admission: No
[2022-01-10] MEDS: ACETAMINOPHEN 325 MG TABLET 650 MG PO (09:04)
--- NOTE | 2022-01-10 12:54 | PC.NURSE ---
Day shift: Paperwork signed and all questions answered. Left unit at approx 1250. She wanted to ambulate to her car. Accompanied by [employer]ISCO Schofield for safety. SHe has been independent in room. Had a shower before d/c and tolerated well. New script for 81mg Aspirin daily. Has all personal belongings.
== END 2022-01-10 12:56 | disposition home or self-care (01) ==
LOC: ED 13:18 → AC 13:21
PROVIDERS: Admitting Provider Family Medicine; Emergency Provider Family Medicine Addiction Medicine; PCP Internal Medicine; Referring Provider Family Medicine Addiction Medicine; Visit Provider Family Medicine
DX: G45.9 Transient cerebral ischemic attack, unspecified (principal); R29.818 Other symptoms and signs involving the nervous system; R20.0 Anesthesia of skin; I10 Essential (primary) hypertension; E78.5 Hyperlipidemia, unspecified; R29.701 NIHSS score 1; Z20.822 Contact with and (suspected) exposure to COVID-19
CPT/HCPCS: 36415; 70496; 70498; 70551; 71045; 80053; 80305; 81003; 82550; 83735; 84484; 85025; 85610; 85730; 87635; 93005; 93010; 93306; 99284; C9803; G0378; Q9967

== ENCOUNTER → 2022-01-15 12:13 | Outpatient (CLI) | payer MEDICARE, SELFPAY ==
[2022-01-09 15:20] VITALS: BMI 22.8
[2022-01-15 14:16] LABS: Vitamin B12 338 pg/mL (239-931)
== END ==
PROVIDERS: PCP Internal Medicine; Referring Provider Internal Medicine; Visit Provider Internal Medicine
DX: E53.8 Deficiency of other specified B group vitamins (principal)
CPT/HCPCS: 36415; 82607

== ENCOUNTER → 2022-01-22 16:02 | Outpatient (CLI) | payer MEDICARE, SELFPAY ==
[2022-01-09 15:20] VITALS: BMI 22.8
[2022-01-22 17:57] LABS: Hemoglobin A1C% w Est Avg Glu 5.6 % (4.0-6.0)
== END ==
PROVIDERS: PCP Internal Medicine; Referring Provider Internal Medicine; Visit Provider Internal Medicine
DX: Z86.39 Personal history of other endocrine, nutritional and metabolic disease (principal)
CPT/HCPCS: 36415; 83036

== ENCOUNTER → 2022-02-13 12:22 | Outpatient (CLI) | payer MEDICARE, SELFPAY ==
[2022-01-09 15:20] VITALS: BMI 22.8
[2022-02-13 14:03] LABS: COVID-19 CEPHEID PCR (VTM/NP) Negative (Negative)
== END ==
PROVIDERS: PCP Internal Medicine; Referring Provider Internal Medicine Pulmonary Disease; Visit Provider Internal Medicine Pulmonary Disease
DX: Z01.812 Encounter for preprocedural laboratory examination (principal); Z20.822 Contact with and (suspected) exposure to COVID-19
CPT/HCPCS: C9803; U0003; U0005

== ENCOUNTER → 2022-02-13 12:27 | Outpatient (CLI) | payer MEDICARE, SELFPAY ==
[2022-01-09 15:20] VITALS: BMI 22.8
--- NOTE | 2022-02-13 12:29 | DI.MG.S_ITS ---
BILATERAL DIGITAL SCREENING MAMMOGRAM 3D/2D WITH CAD: 02/13/2022 CLINICAL: Routine screening. Family history of breast cancer. Comparison is made to exams dated: 09/16/2020 mammogram, 04/10/2019 mammogram, and 04/09/2018 mammogram - [facility]. There are scattered areas of fibroglandular density in both breasts (category b / 25%-50% glandular tissue). Current study was also evaluated with a Computer Aided Detection (CAD) system. No significant masses, calcifications, or other findings are seen in either breast. There has been no significant interval change. IMPRESSION: NEGATIVE There is no mammographic evidence of malignancy. A 1 year screening mammogram is recommended. Based on the Tyrer Cuzick model (a risk assessment model) the patient's lifetime risk is 5.4% and her 10 year risk is 5.4%. According to the ACR, ACS, and NCCN guidelines, an annual breast MRI exam along with mammogram is recommended if the patient's lifetime risk is 20% or greater. This exam was interpreted at Station ID: [id number]. NOTE: For mammograms, a report in lay terms will be sent to the patient. Approximately 15% of breast malignancies will not be visualized mammographically. In the management of a palpable breast mass, a negative mammogram must not discourage biopsy of a clinically suspicious lesion. Electronically Signed By: Aime carrero/boris:02/13/2022 16:18:49 letter sent: Normal Exam ACR BI-RADS Category 1: Negative 3341F
== END ==
PROVIDERS: PCP Internal Medicine; Referring Provider Internal Medicine; Visit Provider Internal Medicine
DX: Z12.31 Encounter for screening mammogram for malignant neoplasm of breast (principal); Z80.3 Family history of malignant neoplasm of breast; Z01.812 Encounter for preprocedural laboratory examination; Z20.822 Contact with and (suspected) exposure to COVID-19
CPT/HCPCS: 77063; 77067; C9803; U0003; U0005

== ENCOUNTER → 2022-09-03 16:51 | Outpatient (CLI) | payer MEDICARE, SELFPAY ==
[2022-01-09 15:20] VITALS: BMI 22.8
[2022-09-03 17:52] LABS: Add Manual Diff / Slide Review NO; Basophils Absolute Auto 100 /uL (0-100); Eosinophils Absolute Auto 400 /uL (0-450); Hematocrit 44.8 % (36-46); Hemoglobin 15.1 g/dL (12.0-16.0); Lymphocytes Absolute Auto 700 /uL (1100-4500); Mean Corpuscular HGB Conc 33.7 % (30-36); Mean Corpuscular Hemoglobin 28.5 PG (26-34); Mean Corpuscular Volume 84.7 fL (80-100); Monocytes Absolute Auto 700 /uL (0-900); Monocytes Percent Auto 12.2 % (3-14); Neutrophils Absolute Auto 3700 /uL (1500-7000); Neutrophils Percent Auto 65.8 % (50-75); Platelet Count 416 X10^3/uL (150-400); Red Blood Cell Count 5.29 X10^6/uL (4.0-5.2); Red Cell Distribution Width 14.3 % (11.6-14.8); White Blood Cell Count 5.6 X10^3/uL (4.5-11.0)
[2022-09-03 17:52] LABS: Hemoglobin A1C% w Est Avg Glu 5.6 % (4.0-6.0)
[2022-09-03 18:13] LABS: Alanine Aminotransferase 18 IU/L (<35); Albumin Globulin Ratio 1.2 (1.0-2.8); Alkaline Phosphatase 70 U/L (38-126); Aspartate Aminotransferase 24 IU/L (14-36); BUN Creatinine Ratio 28.9 (6-22); Bilirubin Total 0.4 mg/dL (0.2-1.3); Blood Urea Nitrogen 24 mg/dL (7-17); Calcium 8.7 mg/dL (8.4-10.2); Carbon Dioxide 27 mmol/L (22-32); Chloride 103 mmol/L (98-107); Estimated Glomerular Filt Rate > 60 mL/min (>60); Globulin 3.4 g/dL (1.7-4.1); Glucose 106 mg/dL (80-110); HEMOLYSIS < 15 (0-50); Potassium 3.6 mmol/L (3.4-5.1); Sodium 137 mmol/L (137-145); Total Protein 7.4 g/dL (6.3-8.2)
[2022-09-03 18:29] LABS: Vitamin D 25 Hydroxy (D3) 14.9 ng/mL (30.0-100.0)
[2022-09-06 11:27] LABS: Parathyroid Hormone Int 74 pg/mL (15-65)
[2022-09-14 12:57] LABS: 1,25-Dihydroxy, Vitamin D-2 <10 pg/mL (.)
== END ==
PROVIDERS: Physician Assistant; PCP Internal Medicine; Referring Provider Internal Medicine Endocrinology, Diabetes & Metabolism; Visit Provider Internal Medicine Endocrinology, Diabetes & Metabolism
DX: D72.810 Lymphocytopenia (principal); R73.03 Prediabetes; E55.9 Vitamin D deficiency, unspecified; D86.0 Sarcoidosis of lung; Z13.6 Encounter for screening for cardiovascular disorders; D86.9 Sarcoidosis, unspecified; N20.0 Calculus of kidney
CPT/HCPCS: 80053; 82306; 82652; 83036; 83970; 85025

== ENCOUNTER → 2022-12-08 12:59 | Outpatient (CLI) | payer MEDICARE, SELFPAY ==
[2022-01-09 15:20] VITALS: BMI 22.8
--- NOTE | 2022-12-08 13:16 | DI.DEXA.S_ITS ---
Bone Density Report Name: MARY COLEMAN Age: 77 Sex: Female Ethnicity: White Date of : 1945 Indication: postmenopausal; screening for osteoporosis; Referring Provider: JASSON SALAZAR Study: Bone densitometry was performed. Exam Date: December 08, 2022 Accession number: [id number] Bone Density: Region BMD T-score Z-score Classification AP Spine(L1-L4) 0.945 -0.9 1.5 Normal Femoral Neck (Left) 0.643 -1.9 0.3 Osteopenia Total Hip (Left) 0.812 -1.1 0.8 Osteopenia Femoral Neck (Right) 0.608 -2.2 0.0 Osteopenia Total Hip (Right) 0.810 -1.1 0.8 Osteopenia Total Hip Mean 0.811 -1.1 0.8 Osteopenia World Health Organization criteria for BMD impression classify patients as: Normal (T-score at or above -1.0), Osteopenia (T-score between -1.0 and -2.5), or Osteoporosis (T-score at or below -2.5). 10-year Fracture Risk(1): Major Osteoporotic Fracture 13% Hip Fracture 4.0% Reported Risk Factors: [place] (), Neck BMD=0.608, BMI=21.9 (1) FRAX(R) Version 3.08. Fracture probability calculated for an untreated patient. Fracture probability may be lower if the patient has received treatment. Previous Exams: -- Region Exam Age BMD T-score BMD Change BMD Change Date g/cm2 vs Baseline vs Previous -- AP Spine (L1-L4) 12/08/2022 77 0.945 -0.9 -0.056 (-5.6%)# -0.056 (-5.6%)# 09/16/2020 75 1.001 -0.4 Total Hip(Left) 12/08/2022 77 0.812 -1.1 -0.048 (-5.5%)# -0.048 (-5.5%)# 09/16/2020 75 0.860 -0.7 Total Hip(Right) 12/08/2022 77 0.810 -1.1 -0.066 (-7.5%)# -0.066 (-7.5%)# 09/16/2020 75 0.876 -0.5 -- *Denotes significance at 95% confidence level, LSC for AP Spine = 0.022 g/cm2, LSC for Total Hip = 0.027 g/cm2 # Denotes dissimilar scan types or analysis methods Impression: The patient has low bone mass, based on the Right Femoral Neck T-score. The patient has an estimated ten-year risk of hip fracture of 4% and an estimated ten-year risk of major fracture of 13%, based on the WHO FRAX algorithm. No significant bone loss was observed. Discussion: BONE DENSITY IS LOW AT ONE OR MORE SKELETAL SITES. THE PATIENT'S BMD AND CLINICAL RISK FACTORS CONTRIBUTE TO THIS PATIENT'S INCREASED RISK OF FRACTURE. This patient's lowest T-score is low at one or more skeletal sites. It meets the World Health Organization's (WHO) criteria for ?low bone mass? (T-score between -1.0 and -2.5). The patient's 10-year risk of hip fracture as calculated by FRAX exceeds the threshold where pharmacological therapy is recommended by the National Osteoporosis Foundation (NOF). However, all treatment decisions require clinical judgment and consideration of individual patient factors, including patient preferences, comorbidities, previous drug use, risk factors not captured in the FRAX model (e.g., frailty, falls, vitamin D deficiency, increased bone turnover, interval significant decline in bone density) and possible under or overestimation of fracture risk by FRAX. The patient should follow a healthful lifestyle (good nutrition with adequate calcium and vitamin D, and appropriate weight-bearing exercise). Follow-Up: Consider a repeat BMD and Vertebral Fracture Assessment (VFA) exam in 2 years or sooner if medically necessary, to reassess this patient's status. Reported by: CARLOS ESPARZA M.D. on 12/08/2022 1:22:00 PM.
== END ==
PROVIDERS: PCP Physician Assistant; Referring Provider Physician Assistant; Visit Provider Physician Assistant
DX: Z78.0 Asymptomatic menopausal state (principal); M85.851 Other specified disorders of bone density and structure, right thigh; Z13.820 Encounter for screening for osteoporosis
CPT/HCPCS: 77080

== ENCOUNTER → 2023-04-28 17:29 | Outpatient (CLI) | payer MEDICARE, SELFPAY ==
[2022-01-09 15:20] VITALS: BMI 22.8
--- NOTE | 2023-04-28 17:31 | DI.MG.S_ITS ---
BILATERAL DIGITAL SCREENING MAMMOGRAM 3D/2D WITH CAD: 04/28/2023 CLINICAL: Routine screening. Family history of breast cancer. Comparison is made to exams dated: 02/13/2022 mammogram, 09/16/2020 mammogram, and 04/10/2019 mammogram - [facility]. Both breasts are almost entirely fatty (category a/<25% glandular tissue). Current study was also evaluated with a Computer Aided Detection (CAD) system. No significant masses, calcifications, or other findings are seen in either breast. There has been no significant interval change. IMPRESSION: NEGATIVE There is no mammographic evidence of malignancy. A 1 year screening mammogram is recommended. Based on the Tyrer Cuzick model (a risk assessment model) the patient's lifetime risk is 3.2% and her 10 year risk is 0.0%. According to the ACR, ACS, and NCCN guidelines, an annual breast MRI exam along with mammogram is recommended if the patient's lifetime risk is 20% or greater. This exam was interpreted at Station ID: [id number]. NOTE: For mammograms, a report in lay terms will be sent to the patient. Approximately 15% of breast malignancies will not be visualized mammographically. In the management of a palpable breast mass, a negative mammogram must not discourage biopsy of a clinically suspicious lesion. Electronically Signed By: Chasidy [email or web address]/boris:04/29/2023 12:21:58 letter sent: Normal Exam ACR BI-RADS Category 1: Negative 3341F
== END ==
PROVIDERS: Family Provider Physician Assistant; PCP Physician Assistant; Referring Provider Physician Assistant; Visit Provider Physician Assistant
DX: Z12.31 Encounter for screening mammogram for malignant neoplasm of breast (principal); Z80.3 Family history of malignant neoplasm of breast
CPT/HCPCS: 77063; 77067

== ENCOUNTER 2024-01-31 22:16 | Emergency (ER) | payer MEDICARE, SELFPAY ==
[2022-01-09 15:20] VITALS: BMI 22.8
[2024-01-31 22:48] VITALS: BP 189/82; PULSE 105; RESP 22; TEMP 36.5; O2SAT 94; BMI 22.3
--- NOTE | 2024-01-31 23:03 | EKG_ITS ---
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
--- NOTE | 2024-01-31 23:17 | DI.RAD.S_ITS ---
PROCEDURE: XR CHEST 1V INDICATIONS: palpitations TECHNIQUE: One view of the chest was acquired. COMPARISON: [facility], CR, XR CHEST 1V, 01/09/2022, 12:41. FINDINGS: Surgical changes and devices: None. Lungs and pleura: Streaky perihilar opacities. Mediastinum: Mediastinal contours appear normal. Heart size is normal. Bones and chest wall: No suspicious bony lesions. Overlying soft tissues appear unremarkable. IMPRESSION: Streaky perihilar opacities, concerning for infection or aspiration, less likely atelectasis. Dictated by: Mathew More M.D. on 02/01/2024 at 0:01 Approved by: Mathew More M.D. on 02/01/2024 at 0:02
[2024-01-31 23:31] VITALS: BP 217/100; PULSE 109; RESP 24; O2SAT 97
[2024-01-31 23:33] VITALS: BP 203/97; PULSE 105; RESP 26; O2SAT 96
[2024-01-31 23:47] LABS: Add Manual Diff / Slide Review NO; Basophils Absolute Auto 100 /uL (0-100); Basophils Percent Auto 1.2 % (0-2); Eosinophils Absolute Auto 400 /uL (0-450); Eosinophils Percent Auto 5.7 % (2-4); Hematocrit 46.6 % (36-46); Hemoglobin 16.1 g/dL (12.0-16.0); Lymphocytes Absolute Auto 900 /uL (1100-4500); Mean Corpuscular HGB Conc 34.6 % (30-36); Mean Corpuscular Hemoglobin 29.7 PG (26-34); Mean Corpuscular Volume 85.8 fL (80-100); Monocytes Absolute Auto 800 /uL (0-900); Monocytes Percent Auto 11.5 % (3-14); Neutrophils Absolute Auto 4700 /uL (1500-7000); Neutrophils Percent Auto 68.6 % (50-75); Platelet Count 430 X10^3/uL (150-400); Red Blood Cell Count 5.43 X10^6/uL (4.0-5.2); Red Cell Distribution Width 14.4 % (11.6-14.8); White Blood Cell Count 6.9 X10^3/uL (4.5-11.0)
[2024-01-31 23:53] LABS: Prothrombin Time 11.3 SECONDS (9.4-12.5)
[2024-01-31 23:56] LABS: PTT Partial Thromboplastin Tim 44 SECONDS (25.1-36.5)
[2024-01-31 23:58] LABS: Alanine Aminotransferase 18 IU/L (<35); Albumin 4.3 g/dL (3.5-5.0); Albumin Globulin Ratio 1.1 (1.0-2.8); Alkaline Phosphatase 71 U/L (38-126); Aspartate Aminotransferase 26 IU/L (14-36); Bilirubin Total 0.5 mg/dL (0.2-1.3); Blood Urea Nitrogen 23 mg/dL (7-17); Calcium 9.9 mg/dL (8.4-10.2); Carbon Dioxide 28 mmol/L (22-32); Chloride 107 mmol/L (98-107); Creatine Kinase 43 U/L (30-135); Estimated Glomerular Filt Rate > 60 mL/min (>60); Globulin 3.9 g/dL (1.7-4.1); Glucose 99 mg/dL (80-110); HEMOLYSIS < 15 (0-50); Lipase 125 U/L (23-300); Sodium 140 mmol/L (137-145); Total Protein 8.2 g/dL (6.3-8.2)
[2024-02-01] VITALS (14 sets, daily range): BP systolic 166–207; BP diastolic 64–118; PULSE 85–102; RESP 15–35; O2SAT 87–97
[2024-02-01 00:09] LABS: NT-proBNP (BNP-Adult 18+) 26 pg/mL (<450); Troponin I < 0.012 ng/mL (0.01-0.034)
--- NOTE | 2024-02-01 01:38 | ED.RECABL ---
HPI - Recheck/Abnormal Lab/Rx General Chief Complaint: Recheck/Abnormal Lab/Rx Stated Complaint: High BP, Rapid Pulse Time Seen by Provider: 01/31/24 23:17 Source: patient Mode of arrival: Ambulatory History of Present Illness HPI narrative: 78-year-old female history of sarcoidosis, kidney stones, hyperparathyroid, laryngeal mass, hypertension, dyslipidemia, prior TIA, GERD who presents with complaint of hypertension and palpitations. Patient has not noted she is felt more labored with her breathing. Patient presents with complaint of feeling horrible while watching a movie. She states felt like her blood pressure was high, she states she could just feel it. She denies headache, no chest pain or pressure, she normally has shortness of breath she was feels like she is at her baseline she denies any lightheadedness no nausea or vomiting no issues with the abdominal pain, she has been mildly constipated, no urinary symptoms. No new swelling in extremities. She states she has not had any increase or worsening in her upper airway. Patient denies fevers or chills cold cough or congestion or other symptoms. She is hypertensive here in the department but states she is feeling improved currently. Patient states she follows with pulmonology for her sarcoid, she is on losartan daily for her blood pressure, she was taking aspirin daily she does use inhalers. She states she did have a Mohs surgery on her left ankle but it has been healing well her sutures were removed today and she was told that they looked very good. She was on doxycycline for this. Patient has multiple medication allergies. Notes she had a cardiac workup in the last year 2 [facility]. She had new med stress test which was negative that time she was having abdominal pain and lightheadedness or near syncope. No tobacco, occasional alcohol, no recreational drugs. Related Data Home Medications Medication Instructions Recorded Confirmed losartan 50 mg tablet 50 mg PO DAILY 05/25/18 01/26/23 albuterol sulfate 90 mcg/actuation 2 puff inhalation Q4-6H PRN 11/03/21 01/26/23 aerosol inhaler Respiratory Distress fluocinolone 0.01 % topical cream 1 applic topical BID 11/03/21 01/26/23 aspirin 81 mg tablet,delayed 81 mg PO DAILY 04/15/22 01/26/23 release bepotastine besilate 1.5 % eye 1 drp EYE-BOTH BID PRN 04/15/22 01/26/23 drops (Bepreve) cyanocobalamin (vitamin B-12) 1,000 mcg PO DAILY 04/15/22 01/26/23 1,000 mcg capsule Previous Rx's Medication Instructions Recorded Vagifem 10 mcg vaginal tablet 10 mcg vaginal 2XW #24 tabs 08/10/23 (estradiol) Vivelle-Dot 0.0375 mg/24 hr 1 patch transdermal 2XW #8 ea 10/29/23 transdermal patch (estradiol) amoxicillin 875 mg-potassium 1 tab PO BID #20 tabs 02/01/24 clavulanate 125 mg tablet Allergies Allergy/AdvReac Type Severity Reaction Status Date / Time clopidogrel AdvReac Intermediate Verified 07/28/23 11:29 diphtheria,pertussis AdvReac Intermediate Verified 07/28/23 11:29 (acellular),te [From Boostrix Tdap] rosuvastatin AdvReac Intermediate GI distress Verified 07/28/23 11:29 estradiol AdvReac Unknown Verified 07/28/23 11:29 glycopyrrolate AdvReac Unknown Verified 07/28/23 11:29 hydrocodone AdvReac Unknown Verified 07/28/23 11:29 atorvastatin AdvReac Verified 07/28/23 11:29 codeine AdvReac Verified 07/28/23 11:29 meperidine [From Demerol] AdvReac Verified 07/28/23 11:29 General Anesthesia AdvReac Uncoded 07/28/23 11:29 Review of Systems Review of Systems ROS Unobtainable: All systems reviewed & are unremarkable except as noted in HPI and below Patient History Medical History Advanced directives, counseling/discussion History of colonic polyps Medicare annual wellness visit, initial Psoriasis Migraines Rotator cuff disorder Mumps Measles Elevated lymphocytes Vertigo Family history of renal stone Esophageal ring Colon polyps Vitamin D deficiency Thyroid nodule Heart palpitations (~2014) Skin cancer History of TIA (transient ischemic attack) Mixed hyperlipidemia Recurrent nephrolithiasis Eczematous dermatitis Essential hypertension (~2012) Menopausal syndrome Pulmonary sarcoidosis Skin rash Eczema Actinic keratosis Sarcoidosis (~2009) Allergies Dupuytren contracture (~2009) Shoulder pain Osteopenia (~2020) Abnormal Pap smear of cervix Kidney stones Hemorrhoid GERD (gastroesophageal reflux disease) History of vaginal delivery Hypertension (~2012) Surgical History History of surgery on arm (~2007) History of mastopexy (~2006) History of surgery (~05/31/07) History of surgery on arm (~1972) History of tubal ligation (~1969) Anesthesia History of anterior colporrhaphy H/O hysterectomy for benign disease (~1972) Family History Father Psoriasis Mother Cancer Diabetes mellitus History of heart disease Hyperlipidemia Hypertension Stroke Brother Psoriasis Brother Dialysis patient Sister Psoriasis Psoriatic arthritis Sister Waldenstroms macroglobulinemia Grandfather History of heart disease Grandmother Stroke Grandfather Pneumonia Grandmother Cancer Family/Other Hyperlipidemia Psoriasis Social History details: Single (partner of myeloma 09/2021), grown children household members: friend(s) Smoking Status: Never smoker alcohol intake: current Smoking Status: Never smoker alcohol intake frequency: holidays/special occasions only Substance Use Type: does not use Exam Narrative Exam Narrative: GEN: Thin female, alert and oriented x 3, patient appears to be in mild distress. HEENT: Atraumatic, pupils are equal round reactive to light, extraocular movements are intact, nares are clear, there is no conjunctival pallor. Throat is clear without any exudates, erythema, tonsillar enlargement or uvular deviation, patient has some mild wheeze that is audible with inspiration. She states this is her baseline. It is quite faint but is present. She has no hoarseness or muffled voice she is lying back on the bed comfortably. HEART: Regular rate and rhythm without murmur, clicks, rubs. Pulses are equal in upper and lower extremities LUNGS:Lungs clear to auscultation, no wheezes, rales, crackles, chest moves symmetrically, no tachypnea, no accessory muscle use patient's speaks in full sentences. ABD:bowel sounds normal, soft, non-tender, no guarding, rebound, rigidity, no masses noted, no hepatosplenomegaly :No CVA tenderness MSCL: Non-tender, no muscle atrophy, muscles strength 5/5 upper and lower extremities, full range of motion, normal gait NEURO:CN 2-12 intact, sensation normal, Initial Vital Signs Initial Vital Signs: Vital Signs Temperature 97.7 F 01/31/24 22:48 Pulse Rate 105 H 01/31/24 22:48 Respiratory Rate 22 01/31/24 22:48 Blood Pressure 189/82 H 01/31/24 22:48 Pulse Oximetry 94 01/31/24 22:48 Oxygen Delivery Method Room Air 01/31/24 22:48 Course Orders Ordered: ED Orders 01/31/24 22:45 EKG-12 Lead Stat 01/31/24 23:17 XR chest 1V Stat 01/31/24 23:41 Complete Blood Count AUTO DIFF Stat Comprehensive Metabolic Panel Stat Lipase Stat NT-proBNP (BNP-Adult 18+) Stat PTT Partial Thromboplastin Diaz Stat Prothrombin Time INR Stat Troponin & CK Cardiac Panel Stat 02/01/24 01:43 Magnesium Stat 02/01/24 02:06 EKG-12 Lead Stat 02/01/24 02:33 Trop I [Troponin I] Stat Discontinued Medications Losartan Potassium (Losartan 50 Mg Tablet) 50 mg PO NOW ONE Stop: 02/01/24 02:07 Last Admin: 02/01/24 02:28 Dose: 50 mg Documented By: GILMA Vital Signs Vital signs: Vital Signs - 8 hr 01/31/24 22:48 01/31/24 23:31 01/31/24 23:31 Temperature 97.7 F Pulse Rate 105 H 109 H Respiratory Rate 22 24 Blood Pressure 189/82 H 217/100 H Pulse Oximetry 94 97 Oxygen Delivery Method Room Air 01/31/24 23:33 01/31/24 23:33 02/01/24 00:00 Temperature Pulse Rate 105 H 97 H Respiratory Rate 26 H 15 Blood Pressure 203/97 H Pulse Oximetry 96 93 Oxygen Delivery Method 02/01/24 00:00 02/01/24 00:30 02/01/24 00:30 Temperature Pulse Rate 97 H 92 H Respiratory Rate 18 15 Blood Pressure 184/84 H 166/77 H Pulse Oximetry 97 93 Oxygen Delivery Method 02/01/24 01:00 02/01/24 01:00 02/01/24 01:30 Temperature Pulse Rate 93 H 85 Respiratory Rate 18 18 Blood Pressure 172/74 H Pulse Oximetry 94 93 Oxygen Delivery Method 02/01/24 01:30 08/13/24 01:47 02/01/24 01:47 Temperature Pulse Rate 102 H Respiratory Rate 16 Blood Pressure 178/79 H 193/118 H Pulse Oximetry 87 L Oxygen Delivery Method 02/01/24 01:48 02/01/24 01:48 02/01/24 02:00 Temperature Pulse Rate 101 H 97 H Respiratory Rate 16 31 H Blood Pressure 207/97 H Pulse Oximetry 95 93 Oxygen Delivery Method 02/01/24 02:00 02/01/24 02:28 02/01/24 02:30 Temperature Pulse Rate 85 85 Respiratory Rate 35 H Blood Pressure 199/64 H 199/64 H Pulse Oximetry 93 Oxygen Delivery Method 02/01/24 03:00 02/01/24 03:01 02/01/24 03:01 Temperature Pulse Rate 92 H 92 H Respiratory Rate 15 17 Blood Pressure 188/79 H Pulse Oximetry 92 93 Oxygen Delivery Method 02/01/24 03:30 02/01/24 03:31 02/01/24 03:31 Temperature Pulse Rate 87 86 Respiratory Rate 18 27 H Blood Pressure 178/70 H 178/70 H Pulse Oximetry 93 94 Oxygen Delivery Method 02/01/24 03:38 Temperature Pulse Rate 86 Respiratory Rate 16 Blood Pressure 178/70 H Pulse Oximetry 93 Oxygen Delivery Method Room Air MDM - Recheck/Abnormal Lab/Rx Lab Data 01/31/24 23:41 01/31/24 23:41 Labs: Lab Results 01/31/24 02/01/24 Range/Units 23:41 02:33 WBC 6.9 (4.5-11.0) X10^3/uL RBC 5.43 H (4.0-5.2) X10^6/uL Hgb 16.1 H (12.0-16.0) g/dL Hct 46.6 H (36-46) % MCV 85.8 (80-100) fL MCH 29.7 (26-34) PG MCHC 34.6 (30-36) % RDW 14.4 (11.6-14.8) % Plt Count 430 H (150-400) X10^3/uL Neut % (Auto) 68.6 (50-75) % Lymph % (Auto) 13.0 L (25-40) % [place] % (Auto) 11.5 (3-14) % Eos % (Auto) 5.7 H (2-4) % Baso % (Auto) 1.2 (0-2) % Neut # (Auto) 4700 (6589-1905) /uL Lymph # (Auto) 900 L (2816-7364) /uL [place] # (Auto) 800 (0-900) /uL Eos # (Auto) 400 (0-450) /uL Baso # (Auto) 100 (0-100) /uL PT 11.3 (9.4-12.5) SECONDS INR 1.0 (0.9-1.3) APTT 44 H (25.1-36.5) SECONDS Sodium 140 (137-145) mmol/L Potassium 4.0 (3.4-5.1) mmol/L Chloride 107 (98-107) mmol/L Carbon Dioxide 28 (22-32) mmol/L BUN 23 H (7-17) mg/dL Creatinine 0.92 (0.52-1.04) mg/dL Estimated GFR > 60 (>60) mL/min BUN/Creatinine Ratio 25.0 H (6-22) Glucose 99 (80-110) mg/dL Calcium 9.9 (8.4-10.2) mg/dL Magnesium 2.3 (1.6-2.3) mg/dL Total Bilirubin 0.5 (0.2-1.3) mg/dL AST 26 (14-36) IU/L ALT 18 (<35) IU/L Alkaline Phosphatase 71 (38-126) U/L Total Creatine Kinase 43 (30-135) U/L Troponin I < 0.012 < 0.012 (0.01-0.034) ng/mL NT-Pro-B Natriuret Pep 26 (<450) pg/mL Total Protein 8.2 (6.3-8.2) g/dL Albumin 4.3 (3.5-5.0) g/dL Globulin 3.9 (1.7-4.1) g/dL Albumin/Globulin Ratio 1.1 (1.0-2.8) Lipase 125 (23-300) U/L Urine Dip Bedside Urine Glucose Negative Bedside Urine Bilirubin - Negative Bedside Urine Ketone - Negative Urine Specific [place] 1.005 Bedside Urine Occult Blood - Negative Bedside Urine pH 6.0 Bedside Urine Protein - Negative Bedside Urine Urobilinogen - Negative Bedside Urine Nitrite - Negative Bedside Urine Leukocytes - Negative Esterase Imaging Data Chest x-ray: Radiologist's Impression: [address] [address] XRay Report Signed Patient: Anali Kumar MR#: [id number] : 1945 Acct:[id number] Age/Sex: 78 / F Date of Service: 01/31/24 Loc: ED Accession Number: [id number] Procedure: XR chest 1V Ordering Provider: Gayle Lopez D.O. PROCEDURE: XR CHEST 1V INDICATIONS: palpitations TECHNIQUE: One view of the chest was acquired. COMPARISON: [facility], CR, XR CHEST 1V, 01/09/2022, 12:41. FINDINGS: Surgical changes and devices: None. Lungs and pleura: Streaky perihilar opacities. Mediastinum: Mediastinal contours appear normal. Heart size is normal. Bones and chest wall: No suspicious bony lesions. Overlying soft tissues appear unremarkable. IMPRESSION: Streaky perihilar opacities, concerning for infection or aspiration, less likely atelectasis. Dictated by: Mathew More M.D. on 02/01/2024 at 0:01 Approved by: Mathew More M.D. on 02/01/2024 at 0:02 ECG Data Attestation: I personally reviewed and interpreted this ECG as follows: Prior ECG tracings: available for review Interpretation: Sinus tach first-degree AV block right bundle-branch block, rate of 101 OH 216 QRS of 128 QTC of 466. Patient does have ST changes compared to prior elevation aVL but not in 1, patient has T-wave depressions. Repeat EKG shows sinus rhythm first-degree AV block rate 89. To 40 QRS of 124 QTC 467, no acute ST elevation or depression noted patient's EKG appears similar to prior from earlier today. MDM Narrative Medical decision making narrative: 78-year-old female who states blood pressure was high at home she felt horrible but has no other symptoms described during review of systems. Blood pressure is elevated here she states she is feeling improved at this time. She does take losartan daily for blood pressure 50 mg normally takes it in the morning. White count of 6.9 hemoglobin is 16 point, hemoglobin crit of 46, patient has been mildly elevated remotely, platelets are 430 patient has been generally elevated in the 400 range since 2019. INR is 1 PTT is 44. Electrolytes are appropriate BUN 23, sodium is 140 potassium 4.1, magnesium is 2.3. Troponins less than 0.012 with a BNP of 26. Repeat troponin is less than 0.012. Chest x-ray shows streaky perihilar opacities concerning for aspiration or infection less likely atelectasis. EKG shows sinus rhythm, no right bundle-branch block which patient states she is aware of. Does have change from 2021. Patient notes she has had EKGs in the interim at other facilities but not here since 2021. No dynamic changes on EKG. Patient is hypertensive during her stay she has felt improved we did give her long losartan dose early she normally takes it in the morning. Has had some slight improvement but is a slow acting medication. Patient has a lot of medication allergies and adverse reactions so preferred to give her something that she is normally taken. Did discuss with patient chest x-ray shows possible infection may after discussion we will start oral antibiotic, vitals are actually more reassuring in terms of sepsis. Discussed with patient she will take prescription for the antibiotic but may talk it over with her paradichlorobenzene machine operator, with a history of sarcoid I think this is appropriate she is some streaky change could be pneumonia but symptoms little bit less consistent with this. Patient will seed cone picker prescription tomorrow. Also discussed she would continue to follow her blood pressure and if persistently elevated needs additional adjustment of her medication. Discharge Plan Departure Patient Disposition: Home Clinical Impression: Pneumonia Activity Restrictions/Additional Instructions: Follow up for recheck with your physician, I would recommend you continue to monitor your blood pressure if elevated they need need to increase your blood pressure medication. Talk with your physician about the best way to do this. Your chest x-ray shows some possible pneumonia. Take antibiotics until completed. If you prefer you can talk this over with your paradichlorobenzene machine operator. A copy of your report included with your papers. Prescription was sent to [facility] in [place]. Please return for new or worsening symptoms, new chest pain or shortness of breath, fevers, difficulty with breathing, persistent vomiting, new swelling in extremities or other new or concerning changes. Prescriptions: New amoxicillin-pot clavulanate 875-125 mg tablet 1 tab PO BID Qty: 20 0RF No Action estradiol [Vagifem] 10 mcg tablet 10 mcg VAGINAL 2XW Qty: 24 3RF estradiol [Vivelle-Dot] 0.0375 mg/24 hr patch semiweekly 1 patch TRANSDERMAL 2XW Qty: 8 4RF fluocinolone 0.01 % cream 1 applic topical BID albuterol sulfate 90 mcg/actuation HFA aerosol inhaler 2 puff inhalation Q4-6H PRN (Reason: Respiratory Distress) aspirin 81 mg tablet,delayed release (DR/EC) 81 mg PO DAILY Patient Comments: TAKE ONE TABLET BY MOUTH ONE TIME DAILY bepotastine besilate [Bepreve] 1.5 % drops 1 drp EYE-BOTH BID PRN cyanocobalamin (vitamin B-12) 1,000 mcg capsule 1,000 mcg PO DAILY losartan 50 mg Tablet 50 mg PO DAILY Referrals: Lucy Mullen PA-C [Primary Care Provider] - Stand Alone Forms: Patient Portal/API
[2024-02-01 02:03] LABS: Magnesium 2.3 mg/dL (1.6-2.3)
--- NOTE | 2024-02-01 02:17 | EKG_ITS ---
[place] [address] [place] [id number] Test Date: 2024-02-01 Pat Name: Anali Kumar Department: [facility] Room: Gender: Female Hand Icer: GILMA : 1945 Requested By: Order Number: [id number] Reading MD: Andrea Wood MD Measurements Intervals [place] Rate: 89 P: 40 [place]: 240 QRS: 86 QRSD: 124 T: -14 QT: 384 QTc: 467 Interpretive Statements Sinus rhythm with 1st degree AV block Right bundle branch block T wave abnormality, consider inferior ischemia NO SIGNIFICANT CHANGE FROM PRIOR TRACING Electronically Signed On 02-01-2024 7:48:16 PDT by Andrea Wood MD
[2024-02-01] MEDS: LOSARTAN 50 MG TABLET PO (02:28)
[2024-02-01 03:03] LABS: Troponin I < 0.012 ng/mL (0.01-0.034)
== END 2024-02-01 03:40 | disposition home or self-care (01) ==
PROVIDERS: Emergency Provider Emergency Medicine; Family Provider Physician Assistant; PCP Physician Assistant
DX: J18.9 Pneumonia, unspecified organism (principal); I10 Essential (primary) hypertension; I44.0 Atrioventricular block, first degree; R00.0 Tachycardia, unspecified; Z79.899 Other long term (current) drug therapy
CPT/HCPCS: 36415; 71045; 80053; 81003; 82550; 83690; 83735; 83880; 84484; 85025; 85610; 85730; 93005; 99284

== ENCOUNTER → 2024-12-06 14:40 | Outpatient (CLI) | payer MEDICARE, SELFPAY ==
[2022-01-09 15:20] VITALS: BMI 22.8
--- NOTE | 2024-12-06 14:44 | DI.RAD.S_ITS ---
PROCEDURE: XR DEXA AXIAL SKELETON INDICATIONS: OSTEOPENIA COMPARISON: [facility], , XR DEXA AXIAL SKELETON, 12/08/2022, 13:16. FINDINGS: Lumbar Spine: Bone mineral density 0.903 g/cm2, T score negative for 1.3, consistent with osteopenia. Left Femoral Neck: Bone mineral density 0.601 g/cm2, T score -2.2. Left Hip: Bone mineral density 0.773 g/cm2, T score -1.4, consistent with osteopenia. Fracture Risk Calculation (when applicable): 10-year fracture risk of a major osteoporotic fracture 14 percent and of a hip fracture 4.4 percent. (T score greater or equal to -1.0 to: NORMAL) (T score from -1.1 to -2.4: OSTEOPENIA) (T score less than or equal to -2.5: OSTEOPOROSIS) IMPRESSION: * Progressive bone mineral density loss, now with osteopenia in the left femoral neck and hip and lumbar spine. Follow-up guidelines as follows: Osteoporosis: Consider a repeat DEXA and Vertebral Fracture Assessment (VFA) exam in 2 years or sooner if medically necessary, to reassess this patient's status. Osteopenia: Consider a repeat DEXA in 2-3 years to reassess this patient's status, or if there is a new clinical indication. Normal: Consider a repeat DEXA in 5 years or sooner, or if there is a new clinical indication. All treatment decisions require clinical judgment and consideration of individual patient factors, including patient preferences, comorbidities, previous drug use, risk factors not captured in the FRAX model (e.g., frailty, falls, vitamin D deficiency, increased bone turnover, interval significant decline in bone density ) and possible under- or over-estimation of fracture risk by FRAX. In addition, the NOF Guide recommends that FDA-approved medical therapies be considered in postmenopausal women and men age >= 50 years with a: * Hip or vertebral (clinical or morphometric) fracture * T-score of <=-2.5 at the spine or hip * Ten-year fracture probability by FRAX of >= 3% for hip fracture or >=20% for major osteoporotic fracture. Dictated by: Morro Bashir M.D. on 12/06/2024 at 16:27 Approved by: Morro Bashir M.D. on 12/06/2024 at 16:28
== END ==
PROVIDERS: Family Provider Physician Assistant; PCP Physician Assistant; Visit Provider Internal Medicine
DX: M85.851 Other specified disorders of bone density and structure, right thigh (principal); M85.852 Other specified disorders of bone density and structure, left thigh
CPT/HCPCS: 77080

== ENCOUNTER → 2025-02-23 12:54 | Outpatient (CLI) | payer MEDICARE, SELFPAY ==
[2022-01-09 15:20] VITALS: BMI 22.8
--- NOTE | 2025-02-23 12:56 | DI.MG.S_ITS ---
MM screening mammo BI: 02/23/2025. BI-RADS: 1 CLINICAL: 79-year old female for bilateral screening mammogram. Tyrer-Cuzick lifetime risk of 2.5%. Current reported family history of breast cancer: mother, sister's daughter and second sister's daughter. The patient had a prior right breast biopsy. PRIOR EXAMS 04/28/2023, 02/13/2022, 09/16/2020, 04/10/2019. MAMMOGRAPHY TECHNIQUE: 2D and 3D (tomosynthesis) digital mammographic views obtained, with additional images as needed for full coverage. Current study was also evaluated with a Computer Aided Detection (CAD) system. DENSITY A. The breasts are almost entirely fatty. MAMMOGRAPHY FINDINGS Bilateral: No suspicious mass, asymmetry, microcalcification, or other abnormality seen. IMPRESSION: * No evidence of malignancy. RECOMMENDATIONS Bilateral * Annual screening mammography. OVERALL ASSESSMENT CATEGORY BI-RADS-1: Negative. The [employer] recommends annual screening mammography beginning at age 40 for women with average risk of breast cancer. ELECTRONICALLY SIGNED: Christopher Guardado M.D. on 02/25/2025 at 07:07:25 PM PT Interpreting Station ID: [id number]
== END ==
LOC: MAMMO 12:55
PROVIDERS: Family Provider Physician Assistant; PCP Internal Medicine; Referring Provider Internal Medicine; Visit Provider Internal Medicine
DX: Z12.31 Encounter for screening mammogram for malignant neoplasm of breast (principal); Z80.3 Family history of malignant neoplasm of breast; R92.313 Mammographic fatty tissue density, bilateral breasts
CPT/HCPCS: 77063; 77067

== ENCOUNTER 2025-04-19 08:24 | Emergency (ER) | payer MEDICARE, SELFPAY ==
[2022-01-09 15:20] VITALS: BMI 22.8
[2025-04-19 08:25] VITALS: BP 159/76; PULSE 99; RESP 18; TEMP 36.6; O2SAT 96; BMI 23.4
--- NOTE | 2025-04-19 08:35 | EKG_ITS ---
[address] [address] Test Date: 2025-04-19 Pat Name: Anali Kumar Department: Room: Gender: Female Permit Specialist: LEO : 1945 Requested By: Order Number: [id number] Reading MD: Andrea Wood MD Measurements Intervals [place] Rate: 96 P: 0 [place]: 230 QRS: 96 QRSD: 134 T: -36 QT: 378 QTc: 477 Interpretive Statements Sinus rhythm with 1st degree AV block Right bundle branch block T wave abnormality, consider inferior ischemia No Significant Change Electronically Signed On 04-29-2025 8:59:59 PST by Andrea Wood MD
--- NOTE | 2025-04-19 08:42 | DI.RAD.S_ITS ---
PROCEDURE: XR CHEST 1V INDICATIONS: Dyspnea TECHNIQUE: One view of the chest was acquired. COMPARISON: Outside Facility, RG, CT THORAX W/O CONTRAST, 05/29/2021, 12:32. [facility], CR, XR CHEST 1V, 01/31/2024, 23:42. [facility], CR, XR CHEST 1V, 01/09/2022, 12:41. FINDINGS: Surgical changes and devices: None. Lungs and pleura: New hazy left upper lung zone opacity. Similar right upper lung zone opacity . Mediastinum: Mediastinal contours appear normal. Heart size is normal. Bones and chest wall: No suspicious bony lesions. Overlying soft tissues appear unremarkable. IMPRESSION: New hazy left upper lung zone opacity. Differential includes developing infection versus is increased scarring related to sarcoidosis. Stable right middle lung zone scarring related to sarcoidosis. Dictated by: Mathew More M.D. on 04/19/2025 at 9:19 Approved by: Mathew More M.D. on 04/19/2025 at 9:22
[2025-04-19 08:51] LABS: Add Manual Diff / Slide Review NO; Hematocrit 47.5 % (36-46); Hemoglobin 16.1 g/dL (12.0-16.0); Lymphocytes Absolute Auto 1500 /uL (1100-4500); Mean Corpuscular HGB Conc 33.9 % (30-36); Mean Corpuscular Hemoglobin 29.2 PG (26-34); Mean Corpuscular Volume 86.2 fL (80-100); Platelet Count 392 X10^3/uL (150-400)
[2025-04-19 08:54] LABS: Alanine Aminotransferase 19 IU/L (<35); Albumin 4.1 g/dL (3.5-5.0); Albumin Globulin Ratio 1.2 (1.0-2.8); Alkaline Phosphatase 66 U/L (38-126); Blood Urea Nitrogen 21 mg/dL (7-17); Calcium 9.0 mg/dL (8.4-10.2); Carbon Dioxide 24 mmol/L (22-32); Chloride 105 mmol/L (98-107); Estimated Glomerular Filt Rate > 60 mL/min (>60); Globulin 3.4 g/dL (1.7-4.1); Glucose 129 mg/dL (70-99); HEMOLYSIS < 15 (0-50); Magnesium 2.0 mg/dL (1.6-2.3); Potassium 3.9 mmol/L (3.4-5.1); Sodium 138 mmol/L (137-145); Total Protein 7.5 g/dL (6.3-8.2)
[2025-04-19 09:06] LABS: NT-proBNP (BNP-Adult 18+) 54 pg/mL (<450); Troponin I < 0.012 ng/mL (0.01-0.034)
[2025-04-19 09:14] LABS: INR 1.1 (0.9-1.3); Prothrombin Time 12.3 SECONDS (9.4-12.5)
[2025-04-19 09:17] LABS: PTT Partial Thromboplastin Tim 36 SECONDS (25.1-36.5)
--- NOTE | 2025-04-19 09:18 | EKG_ITS ---
[address] [address] Test Date: 2025-04-19 Pat Name: Anali Kumar Department: Room: Gender: Female Healthcare Technician: LEO : 1945 Requested By: Order Number: [id number] Reading MD: Andrea Wood MD Measurements Intervals [place] Rate: 83 P: 80 DE: 236 QRS: 101 QRSD: 124 T: -9 QT: 448 QTc: 526 Interpretive Statements Sinus rhythm with marked sinus arrhythmia with 1st degree AV block Right bundle branch block T wave abnormality, consider inferior ischemia No Significant Change Electronically Signed On 04-29-2025 9:00:14 PST by Andrea Wood MD
--- NOTE | 2025-04-19 09:20 | PC.NURSE ---
patient stated while in the room Something feels different, my chest feels heavy, my heart feels heavy. MD notified immediately and brought to bedside @ 0915. repeat EKG done at this time.
--- NOTE | 2025-04-19 09:25 | ED_ITS ---
HPI - General Adult General Chief complaint: Shortness of Breath/Dyspnea Stated complaint: SOB Time Seen by Provider: 04/19/25 08:41 Source: patient Mode of arrival: EMS History of Present Illness HPI narrative: Patient brought in by ambulance from home. Patient has history of sarcoidosis. 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 Patient sees Pulmonary Services and Cardiology Service at [facility]. This morning patient denies any chest pain or shortness of breath but felt something different in her chest. Her home heart rate went down to 44 she states. She is in no distress at this time. Speaking comfortably easily and very quickly. Again, denies any chest pain. Never had heart catheterization in the past. Had a stress test 1 year ago in [place]. No prior history of blood clots in legs or lungs. Related Data Home Medications ?Medication ?Instructions ?Recorded ?Confirmed losartan 50 mg tablet 50 mg PO DAILY 05/25/18 08/0 02/10 albuterol sulfate 90 mcg/actuation 2 puff inhalation Q 4-6H PRN 11/03/21 01/26/23 aerosol inhaler Respiratory Distress fluocinolone 0.01 % topical cream 1 applic topical BID 11/03/21 01/26/23 aspirin 81 mg tablet,delayed 81 mg PO DAILY 04/15/22 0 01/26/23 release bepotastine besilate 1.5 % eye 1 drp EYE-BOTH BID PRN 04/15/22 01/26/23 drops (Bepreve) cyanocobalamin (vitamin B-12) 1,000 mcg PO DAILY 04/1501/26/23 1,000 mcg capsule Previous Rx's ?Medication ?Instructions ?Recorded amoxicillin 875 mg-potassium 1 tab PO BID #20 tabs clavulanate 125 mg tablet Vagifem 10 mcg vaginal tablet 10 mcg vaginal 2XW #24 t abs 08/14/24 (estradiol) Vivelle-Dot 0.0375 mg/24 hr 1 patch transdermal 2XW #2 4 ea 01/09/25 transdermal patch (estradiol) apixaban 5 mg tablet (Eliquis) 5 mg PO BID #74 tabs Allergies Allergy/AdvReac Type Severity Reaction Status Date / Time clopidogrel AdvReac Intermediate Verified 04/19/25 08:31 diphtheria,pertussis AdvReac Intermediate Verified 04/19/25 08:31 (acellular),te (From Boostrix Tdap) rosuvastatin AdvReac Intermediate GI distress Verified 04/19/25 08:31 estradiol AdvReac Unknown Verified 04/19/25 08:31 glycopyrrolate AdvReac Unknown Verified 04/19/25 08:31 hydrocodone AdvReac Unknown Verified 04/19/25 08:31 atorvastatin AdvReac Verified 04/19/25 08:31 codeine AdvReac Verified 04/19/25 08:31 meperidine (From Demerol) AdvReac Verified 04/19/25 08:31 General Anesthesia AdvReac Uncoded 04/19/25 08:31 Review of Systems Review of Systems Narrative: GENERAL: Negative chills, fatigue, malaise, fever, sweats. HEENT: Negative sinus pain, ear pain, sore throat RESPIRATORY: Negative dyspnea, cough CARDIOVASCULAR: Negative chest pain, palpitations GASTROINTESTINAL: Negative vomiting, nausea, abdominal pain : Negative dysuria, frequency, hematuria MUSCULOSKELETAL: Negative muscle or bony pain SKIN: Negative rash, skin lesions NEUROLOGIC: Negative weakness, numbness ROS Unobtainable: All systems reviewed & are unremarkable except as noted in HPI and below Patient History Medical History Advanced directives, counseling/discussion History of colonic polyps Medicare annual wellness visit, initial Psoriasis Migraines Rotator cuff disorder Mumps Measles Elevated lymphocytes Vertigo Family history of renal stone Esophageal ring Colon polyps Vitamin D deficiency Thyroid nodule Heart palpitations (~2014) Skin cancer History of TIA (transient ischemic attack) Mixed hyperlipidemia Recurrent nephrolithiasis Eczematous dermatitis Essential hypertension (~2012) Menopausal syndrome Pulmonary sarcoidosis Skin rash Eczema Actinic keratosis Sarcoidosis (~2009) Allergies Dupuytren contracture (~2009) Shoulder pain Osteopenia (~2020) Abnormal Pap smear of cervix Kidney stones Hemorrhoid GERD (gastroesophageal reflux disease) History of vaginal delivery Hypertension (~2012) Surgical History History of surgery on arm (~2007) History of mastopexy (~2006) History of surgery (~05/31/07) History of surgery on arm (~1972) History of tubal ligation (~1969) Anesthesia History of anterior colporrhaphy H/O hysterectomy for benign disease (~1972) Family History Father Psoriasis Mother Cancer Diabetes mellitus History of heart disease Hyperlipidemia Hypertension Stroke Brother Psoriasis Brother Dialysis patient Sister Psoriasis Psoriatic arthritis Sister Waldenstroms macroglobulinemia Grandfather History of heart disease Grandmother Stroke Grandfather Pneumonia Grandmother Cancer Family/Other Hyperlipidemia Psoriasis Social History details: Single (partner of myeloma 09/2021), grown children household members: friend(s) Smoking Status: Unknown if ever smoked alcohol intake: current Smoking Status: Unknown if ever smoked alcohol intake frequency: holidays/special occasions only Exam Narrative Exam Narrative: GENERAL: in no distress, not toxic not dyspneic HEAD: Normocephalic. EYES: Pupils equal round ENT: Mucous membranes moist. NECK: Trachea midline. CARDIOVASCULAR: Regular rate and rhythm RESPIRATORY: Clear to auscultation. Breath sounds equal bilaterally. No wheezes, rales, or rhonchi. There is diminished lung sounds upper bilateral lungs but they are clear. Patient is speaking full sentences rapidly and clearly without any distress. GASTROINTESTINAL: Abdomen soft, non-tender BACK: No flank tenderness. EXTREMITIES: No gross deformities. Nontender bilateral calves no palpable cords. NEURO: AOx4. Clear speech SKIN: Warm and dry PSYCH: Not anxious, is cooperative Initial Vital Signs Initial Vital Signs: Vital Signs Temperature 97.8 F 04/19/25 08:25 Pulse Rate 99 H 04/19/25 08:25 Respiratory Rate 18 04/19/25 08:25 Blood Pressure 159/76 H 04/19/25 08:25 Pulse Oximetry 96 04/19/25 08:25 Oxygen Delivery Method Room Air 04/19/25 08:25 Course Orders Ordered: ED Orders 04/19/25 08:00 Complete Blood Count AUTO DIFF Stat Comprehensive Metabolic Panel Stat Magnesium Stat NT-proBNP (BNP-Adult 18+) Stat Troponin I Stat 04/19/25 08:42 XR chest 1V Stat 04/19/25 08:55 PTT Partial Thromboplastin Diaz Stat Prothrombin Time INR Stat 04/19/25 09:28 CT angio chest PE protocol Stat 04/19/25 10:50 US periph venous low extrem bi Stat Discontinued Medications Apixaban (Apixaban 5 Mg Tablet) 10 mg PO NOW ONE Stop: 04/19/25 11:24 Last Admin: 04/19/25 11:49 Dose: 10 mg Documented By: LISSETT Sodium Chloride (Normal Saline 0.9%) 500 mls @ 1,000 mls/hr IV BOLUS ONE Stop: 04/19/25 09:57 Last Infusion: 04/19/25 11:04 Dose: Infused Documented By: Admin: 04/19/25 09:37 Dose: 1,000 mls/hr Documented By: SOHA Vital Signs Vital signs: Vital Signs - 8 hr 04/19/25 08:25 04/19/25 11:00 04/19/25 14:03 Temperature 97.8 F 98.2 F Pulse Rate 99 H 54 L 94 H Respiratory Rate 18 16 16 Blood Pressure 159/76 H 162/64 H 135/75 Pulse Oximetry 96 97 97 Oxygen Delivery Method Room Air Room Air Room Air Medical Decision Making Lab Data 04/19/25 08:00 04/19/25 08:00 Labs: Lab Results 04/19/25 04/19/25 Range/Units 08:00 08:55 WBC 7.9 (4.5-11.0) X10^3/uL RBC 5.51 H (4.0-5.2) X10^6/uL Hgb 16.1 H (12.0-16.0) g/dL Hct 47.5 H (36-46) % MCV 86.2 (80-100) fL MCH 29.2 (26-34) PG MCHC 33.9 (30-36) % RDW 15.1 H (11.6-14.8) % Plt Count 392 (150-400) X10^3/uL Neut % (Auto) 62.2 (50-75) % Lymph % (Auto) 19.3 L (25-40) % Atkinson % (Auto) 11.7 (3-14) % Eos % (Auto) 6.1 H (2-4) % Baso % (Auto) 0.7 (0-2) % Neut # (Auto) 4900 (7353-5282) /uL Lymph # (Auto) 1500 (6946-0184) /uL Atkinson # (Auto) 900 (0-900) /uL Eos # (Auto) 500 H (0-450) /uL Baso # (Auto) 100 (0-100) /uL PT 12.3 (9.4-12.5) SECONDS INR 1.1 (0.9-1.3) APTT 36 (25.1-36.5) SECONDS Sodium 138 (137-145) mmol/L Potassium 3.9 (3.4-5.1) mmol/L Chloride 105 (98-107) mmol/L Carbon Dioxide 24 (22-32) mmol/L BUN 21 H (7-17) mg/dL Creatinine 0.82 (0.52-1.04) mg/dL Estimated GFR > 60 (>60) mL/min BUN/Creatinine Ratio 25.6 H (6-22) Glucose 129 H (70-99) mg/dL Calcium 9.0 (8.4-10.2) mg/dL Magnesium 2.0 (1.6-2.3) mg/dL Total Bilirubin 0.6 (0.2-1.3) mg/dL AST 27 (14-36) IU/L ALT 19 (<35) IU/L Alkaline Phosphatase 66 (38-126) U/L Troponin I < 0.012 (0.01-0.034) ng/mL NT-Pro-B Natriuret Pep 54 (<450) pg/mL Total Protein 7.5 (6.3-8.2) g/dL Albumin 4.1 (3.5-5.0) g/dL Globulin 3.4 (1.7-4.1) g/dL Albumin/Globulin Ratio 1.2 (1.0-2.8) Imaging Data Chest x-ray: Radiologist's Impression: [address] [address] XRay Report Signed Patient: Anali Kumar MR#: [id number] : 1945 Acct:[id number] Age/Sex: 79 / F Date of Service: 04/19/25 Loc: ED Accession Number: [id number] Procedure: XR chest 1V Ordering Provider: Brian Luke MD PROCEDURE: XR CHEST 1V INDICATIONS: Dyspnea TECHNIQUE: One view of the chest was acquired. COMPARISON: Outside Facility, RG, CT THORAX W/O CONTRAST, 05/29/2021, 12:32. [facility], CR, XR CHEST 1V, 01/31/2024, 23:42. [facility], CR, XR CHEST 1V, 01/09/2022, 12:41. FINDINGS: Surgical changes and devices: None. Lungs and pleura: New hazy left upper lung zone opacity. Similar right upper lung zone opacity . Mediastinum: Mediastinal contours appear normal. Heart size is normal. Bones and chest wall: No suspicious bony lesions. Overlying soft tissues appear unremarkable. IMPRESSION: New hazy left upper lung zone opacity. Differential includes developing infection versus is increased scarring related to sarcoidosis. Stable right middle lung zone scarring related to sarcoidosis. Dictated by: Mathew More M.D. on 04/19/2025 at 9:19 Approved by: Mathew More M.D. on 04/19/2025 at 9:22 CT scan - chest: Radiologist's Impression: [place] [address] CT Scan Report Signed Patient: Anali Kumar MR#: [id number] : 1945 Acct:[id number] Age/Sex: 79 / F Date of Service: 04/19/25 Loc: ED Accession Number: [id number] Procedure: CT angio chest PE protocol Ordering Provider: Brian Luke MD PROCEDURE: CT ANGIO CHEST PE PROTOCOL INDICATIONS: Dyspnea TECHNIQUE: After the administration of intravenous contrast, 2 mm thick sections acquired from the pulmonary apices to the posterior costophrenic angles. 3-dimensional maximum intensity projection (MIP) coronal and sagittal reformats were then acquired through the thorax. For radiation dose reduction, the following was used: automated exposure control, adjustment of mA and/or kV according to patient size. COMPARISON: Outside Facility, RG, CT THORAX W/O CONTRAST, 05/29/2021, 12:32. FINDINGS: Image quality: Diagnostic. Pulmonary arteries: Pulmonary arteries are normal in size. There is a filling defect within a proximal segmental pulmonary artery the right lower lobe (series 7, image 47). Lower Neck: No enlarged lymph nodes. Thyroid: No thyroid nodules which require sonographic follow up, per consensus guidelines. Axillae: No enlarged lymph nodes. Chest Wall: Unremarkable. Bones: Unremarkable. Lungs and Pleura: Smooth interstitial thickening. Confluent scarring of the upper lung zones, with progression from 2020. Diffuse air trapping. Central bronchial thickening. Progressed centrilobular nodules in the superior left lower lobe. Many nodules have spiculated margins. For instance, the 9 millimeter nodule in the peripheral left upper lobe (series 5, image 90) . Heart: Heart size is mildly enlarged. No pericardial effusion. Reflux of contrast into the IVC. Thoracic Vessels: No aortic aneurysm. Mediastinum and Rosy: Extensive hilar adenopathy and mild mediastinal adenopathy. Many E lymph nodes contain central calcifications. Esophagus: No wall thickening. No hiatal hernia. Upper Abdomen: Visualized upper abdomen solid organs and bowel loops appear normal. IMPRESSION: Single proximal segmental pulmonary embolus of the right upper lobe. No evidence of heart strain or infarct. New centrilobular nodules in the left middle lung zone, possibly an endobronchial infection versus progression of sarcoidosis. Sequela of sarcoidosis, with upper lobe predominant scarring and extensive peribronchovascular nodules. This has progressed from prior. Mild pulmonary edema. Mosaic attenuation of the lungs, suggestive of air trapping in the setting of small airways disease. Dictated by: Mathew More M.D. on 04/19/2025 at 10:19 Approved by: Mathew More M.D. on 04/19/2025 at 10:27 US - DVT: Radiologist's Impression: [place] [address] Ultrasound Report Signed Patient: Anali Kumar MR#: [id number] : 1945 Acct:[id number] Age/Sex: 79 / F Date of Service: 04/19/25 Loc: ED Accession Number: [id number] Procedure: US periph venous low extrem bi Ordering Provider: Brian Luke MD PROCEDURE: US PERIPH VENOUS LOW EXTREM BI INDICATIONS: Leg pain/swelling TECHNIQUE: Real-time imaging, as well as color and pulse Doppler interrogation, were performed of the deep veins of both legs from the inguinal ligament to the popliteal fossa, with documentation of the visualized calf veins. COMPARISON: None. FINDINGS: Right: The common femoral, femoral, popliteal, and the visualized calf veins are normally compressible, and free of intraluminal thrombus. Color and pulse Doppler demonstrate normal phasic intravascular flow. There is normal augmentation response to distal compression maneuver. Left: The common femoral, femoral, popliteal, and the visualized calf veins are normally compressible, and free of intraluminal thrombus. Color and pulse Doppler demonstrate normal phasic intravascular flow. There is normal augmentation response to distal compression maneuver. IMPRESSION: No findings of deep venous thrombosis in either lower extremity. Dictated by: Mathew More M.D. on 04/19/2025 at 12:38 Approved by: Mathew More M.D. on 04/19/2025 at 12:39 [facility] Narrative Medical decision making narrative: Patient brought in by ambulance from home. Patient has history of sarcoidosis. 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 Patient sees Pulmonary Services and Cardiology Service at [facility]. This morning patient denies any chest pain or shortness of breath but felt something different in her chest. Her home heart rate went down to 44 she states. She is in no distress at this time. Speaking comfortably easily and very quickly. Again, denies any chest pain. Never had heart catheterization in the past. Had a stress test 1 year ago in [place]. No prior history of blood clots in legs or lungs. MDM After history and exam, CBC CMP troponin BNP EKG chest x-ray CT chest Differential considered: Includes but not limited to STEMI non-STEMI CHF pneumonia pneumothorax pulmonary embolism Medical records reviewed: No recent visit for this complaint Lab Test results independently reviewed as above. Pertinent findings: WBC 7.9 hemoglobin 16.1 INR 1.1 sodium 138 potassium 3.9 BUN 21 creatinine 0.82 troponin less than 0.012 BNP 54 Independently reviewed EKG EKG at 8:35 a.m. sinus rhythm first-degree AV block right bundle branch block rate 96 Repeat EKG at 9:18 a.m. sinus rhythm rate 83 1st degree AV block right bundle branch block Imaging studies independently reviewed: Chest x-ray possible infection left upper lung zone, CT chest PE at right upper lobe single proximal segmental, ultrasound legs no DVTs Consultations: 12:25 p.m.. I spoke with hospitalist, dr rtohman, CT leg ultrasounds EKG laboratory studies are reassuring. Not requiring supplemental oxygen has no pain. Appropriate for discharge home on Eliquis. 12:34 p.m.. I spoke with Dr. Trujillo, cardiology [facility] on-call. Reviewed EKG and essentially stable and unchanged from February 01, 2024 troponin and BNP negative. No heart strain on CT imaging. Re-evaluations: 11:20 a.m.. Updated patient results. Awaiting for ultrasound of the legs for rule out DVT. She agrees understands risks and benefits of Eliquis for pulmonary embolism. 1:13 p.m.. Updated patient results of ultrasound. They are complete. No blood clot. Again she agrees with treatment plan and Eliquis treatment. Return precautions reviewed. She desires discharge home. She does have primary care and Pulmonary Services to follow up with. Discussion: IV contrast use for CT imaging. Appropriate for discharge home. Patient stable with pulmonary embolism and Eliquis has been started. Cardiology and hospitalist has been contacted. Return precautions reviewed. She desires discharge home. She agrees with Eliquis. Diagnosis: Pulmonary embolism Discharge Plan Departure Patient Disposition: Home Clinical Impression: Pulmonary embolism Qualifiers: Pulmonary embolism type: single subsegmental (without acute cor pulmonale) Q ualified Code(s): I26.93 - Single subsegmental thrombotic pulmonary embolism without acute cor pulmonale Instructions: DI for Pulmonary Embolism Activity Restrictions/Additional Instructions: Please see your primary care provider as well as your lunchroom monitor within a week for re-evaluation. Eliquis, blood thinner has been started today. Prescription provided for you. Return if worse if any questions or concerns. Prescriptions: New Eliquis 5 mg tablet 5 mg PO BID Qty: 74 0RF Rx Instructions: Take 10 mg by mouth twice a day for 7 days and then 5 mg twice a day by mouth No Action estradiol [Vagifem] 10 mcg tablet 10 mcg VAGINAL 2XW Qty: 24 3RF estradiol [Vivelle-Dot] 0.0375 mg/24 hr patch semiweekly 1 patch TRANSDERMAL 2XW Qty: 24 3RF fluocinolone 0.01 % cream 1 applic topical BID albuterol sulfate 90 mcg/actuation HFA aerosol inhaler 2 puff inhalation Q4-6H PRN (Reason: Respiratory Distress) aspirin 81 mg tablet,delayed release (DR/EC) 81 mg PO DAILY Patient Comments: TAKE ONE TABLET BY MOUTH ONE TIME DAILY bepotastine besilate [Bepreve] 1.5 % drops 1 drp EYE-BOTH BID PRN cyanocobalamin (vitamin B-12) 1,000 mcg capsule 1,000 mcg PO DAILY amoxicillin-pot clavulanate 875-125 mg tablet 1 tab PO BID Qty: 20 0RF losartan 50 mg Tablet 50 mg PO DAILY Referrals: Nancy Zaragoza MD [Primary Care Provider, Internal Medicine] Stand Alone Forms: Patient Portal/API
--- NOTE | 2025-04-19 09:28 | DI.CT.S_ITS ---
PROCEDURE: CT ANGIO CHEST PE PROTOCOL INDICATIONS: Dyspnea TECHNIQUE: After the administration of intravenous contrast, 2 mm thick sections acquired from the pulmonary apices to the posterior costophrenic angles. 3-dimensional maximum intensity projection (MIP) coronal and sagittal reformats were then acquired through the thorax. For radiation dose reduction, the following was used: automated exposure control, adjustment of mA and/or kV according to patient size. COMPARISON: Outside Facility, RG, CT THORAX W/O CONTRAST, 05/29/2021, 12:32. FINDINGS: Image quality: Diagnostic. Pulmonary arteries: Pulmonary arteries are normal in size. There is a filling defect within a proximal segmental pulmonary artery the right lower lobe (series 7, image 47). Lower Neck: No enlarged lymph nodes. Thyroid: No thyroid nodules which require sonographic follow up, per consensus guidelines. Axillae: No enlarged lymph nodes. Chest Wall: Unremarkable. Bones: Unremarkable. Lungs and Pleura: Smooth interstitial thickening. Confluent scarring of the upper lung zones, with progression from 2020. Diffuse air trapping. Central bronchial thickening. Progressed centrilobular nodules in the superior left lower lobe. Many nodules have spiculated margins. For instance, the 9 millimeter nodule in the peripheral left upper lobe (series 5, image 90) . Heart: Heart size is mildly enlarged. No pericardial effusion. Reflux of contrast into the IVC. Thoracic Vessels: No aortic aneurysm. Mediastinum and Rosy: Extensive hilar adenopathy and mild mediastinal adenopathy. Many E lymph nodes contain central calcifications. Esophagus: No wall thickening. No hiatal hernia. Upper Abdomen: Visualized upper abdomen solid organs and bowel loops appear normal. IMPRESSION: Single proximal segmental pulmonary embolus of the right upper lobe. No evidence of heart strain or infarct. New centrilobular nodules in the left middle lung zone, possibly an endobronchial infection versus progression of sarcoidosis. Sequela of sarcoidosis, with upper lobe predominant scarring and extensive peribronchovascular nodules. This has progressed from prior. Mild pulmonary edema. Mosaic attenuation of the lungs, suggestive of air trapping in the setting of small airways disease. Dictated by: Mathew More M.D. on 04/19/2025 at 10:19 Approved by: Mathew More M.D. on 04/19/2025 at 10:27
[2025-04-19] MEDS: SODIUM CHLORIDE 0.9% 500 ML 1000 ML IV (09:37)
--- NOTE | 2025-04-19 10:15 | PC.NURSE ---
Per Js Berumen to take home 50mg Losartan. Provided water to take meds.
--- NOTE | 2025-04-19 10:50 | DI.US.S_ITS ---
PROCEDURE: US PERIPH VENOUS LOW EXTREM BI INDICATIONS: Leg pain/swelling TECHNIQUE: Real-time imaging, as well as color and pulse Doppler interrogation, were performed of the deep veins of both legs from the inguinal ligament to the popliteal fossa, with documentation of the visualized calf veins. COMPARISON: None. FINDINGS: Right: The common femoral, femoral, popliteal, and the visualized calf veins are normally compressible, and free of intraluminal thrombus. Color and pulse Doppler demonstrate normal phasic intravascular flow. There is normal augmentation response to distal compression maneuver. Left: The common femoral, femoral, popliteal, and the visualized calf veins are normally compressible, and free of intraluminal thrombus. Color and pulse Doppler demonstrate normal phasic intravascular flow. There is normal augmentation response to distal compression maneuver. IMPRESSION: No findings of deep venous thrombosis in either lower extremity. Dictated by: Mathew More M.D. on 04/19/2025 at 12:38 Approved by: Mathew More M.D. on 04/19/2025 at 12:39
[2025-04-19 11:00] VITALS: BP 162/64; PULSE 54; RESP 16; O2SAT 97
[2025-04-19] MEDS: APIXABAN 5 MG TABLET 10 MG PO (11:49)
[2025-04-19 14:03] VITALS: BP 135/75; PULSE 94; RESP 16; TEMP 36.8; O2SAT 97
== END 2025-04-19 14:05 | disposition home or self-care (01) ==
PROVIDERS: Emergency Provider Emergency Medicine; Family Provider Physician Assistant; PCP Internal Medicine
DX: I26.93 Single subsegmental thrombotic pulmonary embolism without acute cor pulmonale (principal); I44.0 Atrioventricular block, first degree; Z79.01 Long term (current) use of anticoagulants
CPT/HCPCS: 36415; 71045; 71275; 80053; 83735; 83880; 84484; 85025; 85610; 85730; 93005; 93010; 93970; 96360; 99284; J7040; Q9967